=== PATIENT | male | born 1980 | race Caucasian/White ===

== ENCOUNTER 2020-11-30 11:21 | Inpatient (IN) | payer MEDICAID, SELFPAY ==
[2020-11-30 11:23] VITALS: BP 142/88; PULSE 69; RESP 14; TEMP 35.9; O2SAT 100; BMI 25.4
--- NOTE | 2020-11-30 12:11 | EDS_ITS ---
HPI History of Present Illness Chief Complaint: Substance Abuse Informant: patient Narrative Narrative: Patient is a 40-year-old previously healthy male who presents to the emergency department to detox from fentanyl. He states that he typically smokes this. He uses around a half a gram per day. He has been doing this over the past year. He has been through detox programs before in the past in [place] approximately 4 to 5 years ago. Prior to fentanyl use to use pills. He denies any other drug use. He does socially drink. He chews tobacco denies smoking cigarettes. He last use around 8 AM last night. He is starting to have some pain in his legs and feeling nauseous and a runny nose. He denies any chest pain, shortness of breath. No abdominal pain. No fevers or chills. [facility] Medical History (Updated 11/30/20 @ 15:[address] Sancho Coffman DO) Substance abuse Allergy/AdvReac Type Severity Reaction Status Date / Time No Known Allergies Allergy Verified 11/30/20 11:23 Social History Smoking Status: Current every day smoker tobacco type: cigarettes ROS ROS ED Constitutional Constitutional ED: Denies fever(s) Eyes Eyes: Denies change in vision ENT ENT ED: Denies epistaxis or rhinorrhea Cardiovascular Cardiovascular: Denies chest pain or palpitations Respiratory/Chest Respiratory/Chest: Denies cough, dyspnea or dyspnea on exertion Gastrointestinal Gastrointestinal: Reports nausea; Denies abdominal pain, diarrhea or vomiting Musculoskeletal Musculoskeletal: Reports myalgias; Denies back pain or neck pain Integumentary Denies rash Neurologic Neurologic: Denies dizziness, headache(s) or weakness EXAM Physical Exam Const Vital Signs: 11/30/20 11:23 Temperature 96.7 F L Temperature Source Temporal Pulse Rate 69 Respiratory Rate 14 Blood Pressure 142/88 H Blood Pressure Mean 106 Pulse Ox 100 Oxygen Delivery Method Room Air Positive well nourished and well developed General Appearance ED: well developed and NAD HEENT Reports normocephalic and head/scalp atraumatic Eyes PERRL and EOMs intact bilaterally Neck supple Resp normal respiratory effort and clear to auscultation bilaterally Auscultation: Negative for rales, rhonchi or wheezes Cardio regular rate, regular rhythm and no murmurs GI normal to inspection, nondistended, normoactive bowel sounds and non-tender Palpation: soft; Negative for guarding or rebound tenderness present Extremity normal to inspection General Extremety ED: Negative for edema or tenderness General Extremity: Negative for edema Neuro oriented x3 Sensorium / Orientation: alert Motor Exam: strength 5/5 throughout Psych mental status grossly normal Skin no rashes or lesions noted MDM MDM MDM Narrative Medical decision making narrative: Patient presents to the ED to request to detox from fentanyl. On arrival to the ED vital signs within normal limits. Patient has a benign physical exam. Medical screening labs being performed. We will plan on admission to the hospital for detoxification. Patient's lab work did not reveal a significant acute abnormality. Tox urine is negative as well as his alcohol level. He otherwise has remained stable throughout ED stay. Lab Data Labs: Laboratory Results - last 24 hr 11/30/20 11/30/20 11/30/20 12:14 12:14 12:14 WBC 10.7 RBC 5.18 Hgb 14.4 Hct 44.4 MCV 85.7 MCH 27.8 MCHC 32.4 RDW Std Deviation 42.9 RDW Coeff of Ivette 13.7 Plt Count 244 MPV 10.0 Immature Gran % (Auto) 0.200 Neut % (Auto) 73.6 H Lymph % (Auto) 17.9 L [place] % (Auto) 6.1 Eos % (Auto) 1.9 Baso % (Auto) 0.3 Absolute Neuts (auto) 7.9 H Absolute Lymphs (auto) 1.92 Nucleated RBC % 0 Sodium 140 Potassium 3.9 Chloride 107 Carbon Dioxide 31.0 Anion Gap 2 L BUN 15 Creatinine 0.79 Estim Creat Clear Calc 113.29 Est GFR (MDRD) Af Amer 140 Est GFR (MDRD) Non-Af 116 BUN/Creatinine Ratio 19.0 Glucose 61 L Calcium 9.4 Total Bilirubin 0.30 AST 18 ALT 25 Alkaline Phosphatase 67 Total Protein 8.1 Albumin 4.0 Globulin 4.1 Albumin/Globulin Ratio 1.0 Urine Opiates Screen Urine Methadone Screen Ur Barbiturates Screen Ur Phencyclidine Scrn Ur Amphetamines Screen U Methamphetamin-MDMA U Benzodiazepines Scrn Urine Cocaine Screen U Cannabinoids Screen Ur Drug Screen Comment Ethyl Alcohol 6.0 11/30/20 12:14 WBC RBC Hgb Hct MCV MCH MCHC RDW Std Deviation RDW Coeff of Ivette Plt Count MPV Immature Gran % (Auto) Neut % (Auto) Lymph % (Auto) [place] % (Auto) Eos % (Auto) Baso % (Auto) Absolute Neuts (auto) Absolute Lymphs (auto) Nucleated RBC % Sodium Potassium Chloride Carbon Dioxide Anion Gap BUN Creatinine Estim Creat Clear Calc Est GFR (MDRD) Af Amer Est GFR (MDRD) Non-Af BUN/Creatinine Ratio Glucose Calcium Total Bilirubin AST ALT Alkaline Phosphatase Total Protein Albumin Globulin Albumin/Globulin Ratio Urine Opiates Screen NEGATIVE Urine Methadone Screen NEGATIVE Ur Barbiturates Screen NEGATIVE Ur Phencyclidine Scrn NEGATIVE Ur Amphetamines Screen NEGATIVE U Methamphetamin-MDMA NEGATIVE U Benzodiazepines Scrn NEGATIVE Urine Cocaine Screen NEGATIVE U Cannabinoids Screen NEGATIVE Ur Drug Screen Comment Ethyl Alcohol Discharge Plan Dx/Rx/DC Orders Clinical Impression: Fentanyl dependence Disposition Disposition: Acute Care Hospital [facility]
[2020-11-30 12:46] LABS: Absolute Lymphocyte Count 1.92 X10^3/uL (0.83-4.51); Absolute Neutrophil Count 7.9 X10^3/uL (2.0-7.7); Basophil# 0.03 X10^3/uL; Basophil% 0.3 % (0-1); Eosinophils% 1.9 % (0-5); Hematocrit 44.4 % (40-54); Hemoglobin 14.4 g/dL (13.0-16.5); Lymphocyte # 1.92 X10^3/ul (0.83-4.51); Lymphocyte % 17.9 % (19-41); Mean Corp Hgb Conc 32.4 g/dL (32-36); Mean Corpuscular Hgb 27.8 pg (27.0-32.0); Mean Corpuscular Volume 85.7 fL (80-94); Monocyte# 0.65 X10^3/uL; Monocyte% 6.1 % (0-10); NRBC Flagged by Analyzer 0 % (0-5); Neutrophil # 7.89 X10^3/uL (2.7-7.7); Neutrophil % 73.6 % (47-70); Platelet Count 244 K/mm3 (150-450); RBC Distribution Width CV 13.7 % (11.6-14.6); RBC Distribution Width SD 42.9 fl (35.1-43.9); Red Blood Count 5.18 M/mm3 (4.6-6.2); White Blood Count 10.7 K/mm3 (4.4-11.0)
[2020-11-30 13:00] LABS: AST(SGOT) 18 U/L (15-37); Alanine Aminotransfer ALT/SGPT 25 U/L (16-61); Alkaline Phosphatase 67 U/L (45-117); Anion Gap 2 (5-15); BUN 15 mg/dL (7-18); Calcium,Total 9.4 mg/dL (8.5-10.1); Chloride 107 mmol/L (98-107); Creatinine, Serum 0.79 mg/dL (0.70-1.30); EST Glomerular Filtration Rate 116 mL/min (>60); Est Glom Filt Rate - Afr Amer 140 mL/min (>60); Estimated Creatinine Clearance 113.29 ml/min; Globulin 4.1 g/dL (2.2-4.2); Glucose 61 mg/dL (74-106); Potassium 3.9 mmol/L (3.5-5.1); Protein, Total 8.1 g/dL (6.4-8.2); Sodium Level 140 mmol/L (136-145)
[2020-11-30 13:15] LABS: Amphetamine Urine VISTA NEGATIVE (<1000 ng/mL); Barbiturate Urine VISTA NEGATIVE (< 200 ng/mL); Benzodiazepine Urine VISTA NEGATIVE (< 200 ng/mL); Cocaine Urine VISTA NEGATIVE (< 300 ng/mL); Ecstacy Urine VISTA NEGATIVE (< 500 ng/mL); Methadone Urine VISTA NEGATIVE (< 300 ng/mL); PCP Urine VISTA NEGATIVE (< 25 ng/mL); THC Urine VISTA NEGATIVE (< 50 ng/mL); Vista UDS pH Range 6
--- NOTE | 2020-11-30 13:24 | HP.PCM.HOS_ITS ---
HPI - General HPI Narrative GLENN OLIVAS, is a 40 M with a PMH as outlined who presents for acute opiate detox. He has a history of fentanyl use, and uses about half a gram daily. His last use was at around 8pm on the night before admission. He has been through detox programs in [place] in the past. He also admitted to using alcohol o ccassionally and chewed tobacco, but didnt smoke it. he denied any cramps, increased sweating, chest pain, palpitaitons, fever, chills, shortness of breath, diarrhea or vomiting. Vitals in the ED were BP of 142/88, OK of 69, RR of 14 and he was saturating at 100% on room air. CBC was unremarkable, and BMp was also unremarkable. Urinalysis was negative, and serum alcohol level was 6. he is being admitted to be managed for acute opioid withrawal. [facility] Medical History (Updated 11/30/20 @ 13:[address] Jaida Herrera MD) Substance abuse Allergy/AdvReac Type Severity Reaction Status Date / Time No Known Allergies Allergy Verified 11/30/20 11:23 Social History Smoking Status: Current every day smoker tobacco type: cigarettes ROS Constitutional Constitutional: Reports chills; Denies anorexia, fever(s), malaise or weakness Eyes Eyes: Denies change in vision ENT HEENT: Reports nasal discharge; Denies dysphagia, headache(s) or nasal c ongestion Cardiovascular Cardiovascular: Reports dyspnea on exertion and lightheadedness; Denies chest pain, edema, orthopnea or palpitations Respiratory/Chest Respiratory/Chest: Denies cough, dyspnea, excessive phlegm production, hemoptysis, productive cough, shortness of breath at rest or shortness of breath with exertion Gastrointestinal Gastrointestinal: Denies abdominal pain, constipation, diarrhea, nausea or vomiting Genitourinary Genitourinary: Denies burning urination or dysuria Musculoskeletal Musculoskeletal: Denies arthralgias Neurologic Neurologic: Denies confusion, dizziness, headache(s), numbness, seizures or syncope Psychiatric Psychiatric: Denies anxiety or depression Hematologic/Lymphatic Hematologic/Lymphatic: Denies anemia Vital Signs Vital Signs Vital Signs: 11/30/20 11:23 Temperature 96.7 F L Temperature Source Temporal Pulse Rate 69 Respiratory Rate 14 Blood Pressure 142/88 H Blood Pressure Mean 106 Pulse Ox 100 Oxygen Delivery Method Room Air Weight Weight: 157 lb 6.561 oz Body Mass Index (BMI) 25.4 Physical Exam Const alert, oriented x3, no apparent distress and average body habitus General Appearance: cooperative HEENT normocephalic, head/scalp atraumatic, hearing grossly normal bilaterally and moist oral mucous membranes Eyes PERRL, EOMs intact bilaterally and conjunctivae normal Resp normal respiratory effort, no retractions, no use of accessory muscles and clear to auscultation bilaterally Cardio regular rate, regular rhythm, S1 normal heart sound, S2 normal heart sound and no murmurs GI normal to inspection, nondistended, normoactive bowel sounds, soft to palpation, non-tender and non-distended Extremity normal to inspection, full ROM and no clubbing, cyanosis or edema Peripheral Pulses: Yes pulses 2+ throughout Skin no rashes or lesions noted Neuro oriented x3, CN's II-XII intact bilaterally, moves all extremities and no focal motor deficits Sensorium / Orientation: awake and alert Psych affect normal Results Lab / Micro Data Result Diagrams: 11/30/20 12:14 11/30/20 12:14 Labs: Laboratory Results - last 24 hr 11/30/20 12:14: WBC 10.7, RBC 5.18, Hgb 14.4, Hct 44.4, MCV 85.7, MCH 27.8, MCHC 32.4, RDW Std Deviation 42.9, RDW Coeff of Ivette 13.7, Plt Count 244, MPV 10.0, Immature Gran % (Auto) 0.200, Neut % (Auto) 73.6 H, Lymph % (Auto) 17.9 L, [place] % (Auto) 6.1, Eos % (Auto) 1.9, Baso % (Auto) 0.3, Absolute Neuts (auto) 7.9 H, Absolute Lymphs (auto) 1.92, Nucleated RBC % 0 11/30/20 12:14: Sodium 140, Potassium 3.9, Chloride 107, Carbon Dioxide 31.0, Anion Gap 2 L, BUN 15, Creatinine 0.79, Estim Creat Clear Calc 113.29, Est GFR (MDRD) Af Amer 140, Est GFR (MDRD) Non-Af 116, BUN/Creatinine Ratio 19.0, Glucose 61 L, Calcium 9.4, Total Bilirubin 0.30, AST 18, ALT 25, Alkaline Phosphatase 67, Total Protein 8.1, Albumin 4.0, Globulin 4.1, Albumin/Globulin Ratio 1.0 11/30/20 12:14: Ethyl Alcohol 6.0 11/30/20 12:14: Urine Opiates Screen NEGATIVE, Urine Methadone Screen NEGATIVE, Ur Barbiturates Screen NEGATIVE, Ur Phencyclidine Scrn NEGATIVE, Ur Amphetamines Screen NEGATIVE, U Methamphetamin-MDMA NEGATIVE, U Benzodiazepines Scrn NEGATIVE, Urine Cocaine Screen NEGATIVE, U Cannabinoids Screen NEGATIVE, Ur Drug Screen Comment Assessment & Plan Assessment/Plan (1) Opioid withdrawal: PLAN: #Acute opioid withdrawal * admit to med surg with telemetry * start on opioid withdrawal protocol with buprenorphine * monitor CINA score * adjunctive meds for symptomatic relief * #Nicotine dependence: says he chews, but doesnt smoke nicotine. Counseled to quit chewing. Nicotine patch 21mg daily DVT prophylaxis: low risk, encourage to ambulate Charges/Coding Visit Charges Inpatient E&M: 90949 Init Hosp L3
[2020-11-30 14:17] VITALS: BP 142/78; PULSE 87; RESP 16; O2SAT 99
[2020-11-30 16:09] VITALS: BP 130/87; PULSE 78; RESP 16; TEMP 36.4; O2SAT 99
--- NOTE | 2020-11-30 16:14 | ED.RN ---
contract signed and social work in with pt
--- NOTE | 2020-11-30 16:16 | CM.ED ---
FLOYD Note: FLOYD referral Source: Case Find Referral Reason: Maame Mckeon met with patient. He is being admitted to [facility]. He reports he abuses fentanyl. He reports 1/2 gram a day with last use at 8pm last night. No current AOD treatment but has AOD treatment in the past in [place], where he is from. Patient was educated on [facility] program and expectations and patient voiced understanding and no concerns. FLOYD called Lesia at [facility]. She was advised of patient admission to the [facility] program. She will follow up on Wednesday. Plan: [facility] Admission Emmie KYLE
[2020-11-30 16:26] VITALS: BP 136/62; PULSE 60; RESP 16; TEMP 37; O2SAT 100; BMI 25.4
[2020-11-30] MEDS: Dicyclomine 10 MG Capsule 20 MG PO (18:18)
[2020-11-30] MEDS: hydrOXYzine PAM 25 MG Capsule 50 MG PO (18:18)
[2020-11-30] MEDS: Methocarbamol 750 MG Tablet 1500 MG PO (18:18)
[2020-11-30] MEDS: Buprenorphine HCl 2 MG TAB.SUBL SL (18:18)
[2020-11-30 20:47] VITALS: BP 139/60; PULSE 79; RESP 18; TEMP 36.8; O2SAT 98
[2020-11-30] MEDS: traZODone 100 MG Tablet PO (20:51)
[2020-11-30] MEDS: Gabapentin 300 MG Capsule PO (20:51)
[2020-11-30] MEDS: cloNIDine HCl 0.1 MG Tablet PO (20:51)
[2020-11-30] MEDS: AMOXICILLIN 500 MG CAPSULE PO (20:51)
[2020-12-01] MEDS: hydrOXYzine PAM 25 MG Capsule 50 MG PO ×3 (02:54→15:51)
[2020-12-01] MEDS: Buprenorphine HCl 2 MG TAB.SUBL SL ×3 (02:54→17:47)
[2020-12-01] MEDS: Methocarbamol 750 MG Tablet 1500 MG PO ×3 (02:54→21:06)
[2020-12-01 03:04] VITALS: BP 108/56; PULSE 63; RESP 18; TEMP 36.5; O2SAT 98
[2020-12-01 08:24] VITALS: BP 117/71; PULSE 78; RESP 18; TEMP 36.5; O2SAT 99
[2020-12-01] MEDS: Dicyclomine 10 MG Capsule 20 MG PO ×2 (08:30→21:06)
[2020-12-01] MEDS: cloNIDine HCl 0.1 MG Tablet PO ×2 (08:30→21:06)
--- NOTE | 2020-12-01 10:16 | PN.HOSP_ITS ---
Subjective Subjective Patient seen and examined. He has no complaints today and feels well. Review of systems is otherwise negative. He has remained hemodynamically stable. He is tolerating the detox procedure well. Objective Data Objective Data Vital Signs: Vital Signs Temp Pulse Resp BP Pulse Ox 97.7 F L 78 18 117/71 99 12/01/20 08:24 12/01/20 08:24 12/01/20 08:24 12/01/20 08:24 12/01/20 08:24 Oxygen Delivery Method Room Air Weight: 157 lb 6.561 oz Body Mass Index (BMI) 25.4 Intake & Output: Intake and Output for Last 24 Hours 11/29/20 11/30/20 12/01/20 23:59 23:59 23:59 Intake Total 600 / 600 500 / 500 Balance 600 / 600 500 / 500 Lab / Micro Data Result Diagrams: 11/30/20 12:14 11/30/20 12:14 Labs: Laboratory Results - last 24 hr 11/30/20 12:14: WBC 10.7, RBC 5.18, Hgb 14.4, Hct 44.4, MCV 85.7, MCH 27.8, MCHC 32.4, RDW Std Deviation 42.9, RDW Coeff of Ivette 13.7, Plt Count 244, MPV 10.0, Immature Gran % (Auto) 0.200, Neut % (Auto) 73.6 H, Lymph % (Auto) 17.9 L, [place] % (Auto) 6.1, Eos % (Auto) 1.9, Baso % (Auto) 0.3, Absolute Neuts (auto) 7.9 H, Absolute Lymphs (auto) 1.92, Nucleated RBC % 0 11/30/20 12:14: Sodium 140, Potassium 3.9, Chloride 107, Carbon Dioxide 31.0, Anion Gap 2 L, BUN 15, Creatinine 0.79, Estim Creat Clear Calc 113.29, Est GFR (MDRD) Af Amer 140, Est GFR (MDRD) Non-Af 116, BUN/Creatinine Ratio 19.0, Glucose 61 L, Calcium 9.4, Total Bilirubin 0.30, AST 18, ALT 25, Alkaline Phosphatase 67, Total Protein 8.1, Albumin 4.0, Globulin 4.1, Albumin/Globulin Ratio 1.0 11/30/20 12:14: Ethyl Alcohol 6.0 11/30/20 12:14: Urine Opiates Screen NEGATIVE, Urine Methadone Screen NEGATIVE, Ur Barbiturates Screen NEGATIVE, Ur Phencyclidine Scrn NEGATIVE, Ur Amphetamines Screen NEGATIVE, U Methamphetamin-MDMA NEGATIVE, U Benzodiazepines Scrn NEGATIVE, Urine Cocaine Screen NEGATIVE, U Cannabinoids Screen NEGATIVE, Ur Drug Screen Comment Physical Exam Const alert, oriented x3, no apparent distress and average body habitus General Appearance: cooperative Exam Limitations: no limitations HEENT normocephalic, head/scalp atraumatic, hearing grossly normal bilaterally and moist oral mucous membranes Head and Scalp: normocephalic Eyes PERRL, EOMs intact bilaterally and conjunctivae normal Resp normal respiratory effort, no retractions, no use of accessory muscles and clear to auscultation bilaterally Cardio regular rate, regular rhythm, S1 normal heart sound, S2 normal heart sound and no murmurs GI normal to inspection, nondistended, normoactive bowel sounds, soft to palpation, non-tender and non-distended Extremity normal to inspection, full ROM and no clubbing, cyanosis or edema Peripheral Pulses: Yes pulses 2+ throughout Skin no rashes or lesions noted Neuro oriented x3, CN's II-XII intact bilaterally, moves all extremities and no focal motor deficits Sensorium / Orientation: awake and alert Psych affect normal Assessment & Plan Assessment/Plan (1) Opioid withdrawal: PLAN: #Acute opioid withdrawal * on opioid withdrawal protocol with buprenorphine * monitor CINA score * adjunctive meds for symptomatic relief * #Nicotine dependence: Counseled to quit chewing. Nicotine patch 21mg daily DVT prophylaxis: low risk, encourage to ambulate Charges/Coding Visit Charges Inpatient E&M: 82597 Subs Hosp L2
[2020-12-01] MEDS: AMOXICILLIN 500 MG CAPSULE PO ×2 (10:17→21:06)
[2020-12-01 12:42] VITALS: BP 98/56; PULSE 74; RESP 16; TEMP 36.6; O2SAT 94
[2020-12-01] MEDS: Gabapentin 300 MG Capsule PO ×2 (12:46→21:06)
[2020-12-01 15:52] VITALS: BP 107/63; PULSE 82; RESP 18; TEMP 36.3; O2SAT 95
[2020-12-01 20:53] VITALS: BP 131/68; PULSE 83; RESP 18; TEMP 36.6; O2SAT 99
[2020-12-01] MEDS: traZODone 100 MG Tablet PO (21:06)
[2020-12-02 02:28] VITALS: BP 123/53; PULSE 86; RESP 18; TEMP 36.6; O2SAT 99
[2020-12-02] MEDS: Buprenorphine HCl 2 MG TAB.SUBL SL ×3 (02:33→17:58)
--- NOTE | 2020-12-02 07:16 | PN.HOSP_ITS ---
Subjective Subjective Patient seen and examined. He has no complaints today and review of systems is otherwise unremarkable. He has remained hemodynamically stable. Objective Data Objective Data Vital Signs: Vital Signs Temp Pulse Resp BP Pulse Ox 97.8 F 86 18 123/53 H 99 12/02/20 02:28 12/02/20 02:28 12/02/20 02:28 12/02/20 02:28 12/02/20 02:28 Oxygen Delivery Method Room Air Weight: 157 lb 6.561 oz Body Mass Index (BMI) 25.4 Intake & Output: Intake and Output for Last 24 Hours 11/30/20 12/01/20 12/02/20 23:59 23:59 23:59 Intake Total 600 / 600 500 / 500 Balance 600 / 600 500 / 500 Lab / Micro Data Result Diagrams: 11/30/20 12:14 11/30/20 12:14 Physical Exam Const alert, oriented x3, no apparent distress and average body habitus General Appearance: cooperative Exam Limitations: no limitations HEENT normocephalic, head/scalp atraumatic, hearing grossly normal bilaterally and moist oral mucous membranes Head and Scalp: normocephalic Eyes PERRL, EOMs intact bilaterally and conjunctivae normal Resp normal respiratory effort, no retractions, no use of accessory muscles and clear to auscultation bilaterally Cardio regular rate, regular rhythm, S1 normal heart sound, S2 normal heart sound and no murmurs GI normal to inspection, nondistended, normoactive bowel sounds, soft to palpation, non-tender and non-distended Extremity normal to inspection, full ROM and no clubbing, cyanosis or edema Peripheral Pulses: Yes pulses 2+ throughout Skin no rashes or lesions noted Neuro oriented x3, CN's II-XII intact bilaterally, moves all extremities and no focal motor deficits Sensorium / Orientation: awake and alert Psych affect normal Assessment & Plan Assessment/Plan (1) Opioid withdrawal: PLAN: #Acute opioid withdrawal * on opioid withdrawal protocol with buprenorphine * monitor CINA score * adjunctive meds for symptomatic relief * #Nicotine dependence: Counseled to quit chewing. Nicotine patch 21mg daily DVT prophylaxis: low risk, encourage to ambulate Charges/Coding Visit Charges Inpatient E&M: 46862 Subs Hosp L2
[2020-12-02 08:30] VITALS: BP 112/68; PULSE 86; RESP 18; TEMP 36.6; O2SAT 98
[2020-12-02] MEDS: Gabapentin 300 MG Capsule PO ×2 (09:15→22:11)
[2020-12-02] MEDS: Methocarbamol 750 MG Tablet 1500 MG PO (09:15)
[2020-12-02] MEDS: hydrOXYzine PAM 25 MG Capsule 50 MG PO (09:15)
[2020-12-02] MEDS: AMOXICILLIN 500 MG CAPSULE PO ×2 (10:34→22:11)
[2020-12-02 14:38] VITALS: BP 118/73; PULSE 76; RESP 18; TEMP 36.5; O2SAT 98
--- NOTE | 2020-12-02 20:43 | NURSING ---
Pandemic documentation initiated 12/02/20 @ 2044.
[2020-12-02 21:59] VITALS: BP 154/73; PULSE 87; RESP 18; TEMP 36.9; O2SAT 99
[2020-12-02] MEDS: cloNIDine HCl 0.1 MG Tablet PO (22:11)
[2020-12-02] MEDS: traZODone 100 MG Tablet PO (22:11)
[2020-12-02] MEDS: Acetaminophen 325 MG Tablet 650 MG PO (22:39)
[2020-12-03 04:07] VITALS: BP 139/61; PULSE 80; RESP 18; TEMP 36.4; O2SAT 99
[2020-12-03] MEDS: Buprenorphine HCl 2 MG TAB.SUBL SL (06:06)
[2020-12-03 08:38] VITALS: BP 113/51; PULSE 69; RESP 18; TEMP 37.2; O2SAT 98
--- NOTE | 2020-12-03 09:25 | DS.PCM_ITS ---
Providers Date of Admission: 11/30/20 Primary Care Physician: No Primary Care Phys Reason For Visit: ACUTE OPIOID WITHDRAWAL Diagnosis Discharge Diagnosis (1) Opioid withdrawal: Status: Acute Code(s): F11.23 - Opioid dependence with withdrawal Hospital Course Operations None Procedures None Summary of Care Provided Minutes Spent on Discharge: 45 Hospital Course: and his last use was around Patient had a history of fentanyl use and used about half a gram daily is a 40-year-old male with a past medical history as outlined with admitted for acute opiate withdrawal.Patient 8 PM on the night before admission. Patient had been through detox a few years ago in [place] but has subsequently relapsed. Review of systems otherwise negative. Was started on opiate withdrawal protocol with Serum alcohol level was 6 and labs were otherwise unremarkable. He was admitted and managed for acute opiate withdrawal. buprenorphine. Patient tolerated 3-day detox process well. He was discharged home on 12/03/2020 is to follow-up with [facility] rehab facility on outpatient basis. Patient seen and examined prior to discharge. He had no complaints and felt well. Review of systems otherwise negative. Labs and vitals reviewed. Home medication reviewed and reconciled. Physical Exam Const alert, oriented x3, no apparent distress and average body habitus General Appearance: cooperative Exam Limitations: no limitations HEENT normocephalic, head/scalp atraumatic, hearing grossly normal bilaterally and moist oral mucous membranes Eyes PERRL, EOMs intact bilaterally and conjunctivae normal Resp normal respiratory effort, no retractions, no use of accessory muscles and clear to auscultation bilaterally Cardio regular rate, regular rhythm, S1 normal heart sound, S2 normal heart sound and no murmurs GI normal to inspection, nondistended, normoactive bowel sounds, soft to palpation, non-tender and non-distended Extremity normal to inspection, full ROM and no clubbing, cyanosis or edema Skin no rashes or lesions noted Neuro oriented x3, CN's II-XII intact bilaterally, moves all extremities and no focal motor deficits Sensorium / Orientation: awake and alert Psych affect normal Weight / BMI Weight Weight: 157 lb 6.561 oz Body Mass Index (BMI) 25.4 ABG / Lab / Microbiology Data Result Diagrams: 11/30/20 12:14 11/30/20 12:14 D/C Instructions Discharge Diet: No restrictions Discharge Activity: Return to Normal Activity Weight Bearing Status: Weight bearing as tolerated Call your doctor if you observe: Fever of 101 or Higher, Shortness of breath, Dizziness, Chest pain and Increased palpitations (irregular heartbeat) Meaningful Use Info Meaningful Use Diagnoses (Choose all that apply): None applicable Discharge Plan Admission Admit Date/Time: 11/30/20 13:36 Primary Reason for Your Visit: acute opioid withdrawal Attending Provider: Jaida Herrera Primary Care Provider: Care Physician,No Primary Instructions Patient Instructions: Heroin Addiction, ED Opioid Withdrawal Discharge Orders/Prescriptions Prescriptions: Discontinued amoxicillin 500 mg capsule 500 mg PO BID RF: 0 Referrals / Follow Up: Care Physician,No Primary [Primary Care Provider] - Disposition Disposition (needs filled in before D/C Order can be placed): Home, Self Care Charges/Coding Visit Charges Inpatient E&M: 02784 Disch Hosp
[2020-12-03] MEDS: AMOXICILLIN 500 MG CAPSULE PO (10:18)
[2020-12-03 11:06] VITALS: BP 114/78; PULSE 69; RESP 18; TEMP 36.8; O2SAT 98
== END 2020-12-03 11:04 | disposition home or self-care (01) | DRG 773 ==
LOC: ED 12:42 → MS3 15:24
PROVIDERS: Admitting Provider Student in an Organized Health Care Education/Training Program; Emergency Provider Emergency Medicine; Referring Provider Student in an Organized Health Care Education/Training Program; Visit Provider Student in an Organized Health Care Education/Training Program
DX: F11.23 Opioid dependence with withdrawal (principal); F17.220 Nicotine dependence, chewing tobacco, uncomplicated
CPT/HCPCS: 80053; 80307; 82077; 85025; 99283; 99406

== ENCOUNTER 2020-12-12 21:35 | Inpatient (IN) | payer MEDICAID, SELFPAY ==
[2020-12-12 21:36] VITALS: BP 152/85; PULSE 81; RESP 16; TEMP 36.3; O2SAT 99; BMI 25.8
--- NOTE | 2020-12-12 22:39 | EDS_ITS ---
HPI History of Present Illness Chief Complaint: Substance Abuse Narrative Narrative: Patient presents with request for detox from fentanyl. He has been using on and off for about a year however he went to detox 3 weeks ago, his girlfriend however did not go through detox so he relapsed. He is now here with his girlfriend. He does not inject. [facility] Medical History (Updated 12/12/20 @ 22:[address] Kristian Castro MD) Fentanyl dependence Hypertension Substance abuse Allergy/AdvReac Type Severity Reaction Status Date / Time No Known Allergies Allergy Verified 12/12/20 21:37 Social History Smoking Status: Current every day smoker tobacco type: cigarettes and smokeless tobacco ROS ROS ED ROS Narrative Past medical history: Reviewed Medications: Reviewed Social history: Opiate abuse as in HPI Review of systems: All systems negative except as indicated General: No fever Eyes: No visual changes ENT: No upper airway congestion, normal voice Neck: No neck pain Cardiovascular: No chest pain Respiratory: No shortness of breath or cough Gastrointestinal: No abdominal pain, nausea vomiting or diarrhea Genitourinary: No dysuria Musculoskeletal: Denies myalgias no difficulty with ambulation Skin: No rash Neurological: No memory loss, confusion or any focal weakness Psych: No recent behavioral changes Hematologic: No easy bleeding or easy bruising EXAM Physical Exam Narrative Exam Narrative: Physical exam General: Well nourished, Well developed, No Acute Distress Head: Normocephalic, Atraumatic Eyes: Conjunctiva not pale ENT: Moist mucous membranes Neck: Supple, Nontender, No lymphadenopathy Cardiovascular: Regular rate, Regular rhythm Respiratory: No distress, CTA bilaterally Abdomen: Soft, Nontender, Nondistended Back: Nontender, Normal Inspection. Negative for: CVA tenderness Extremities: Nontender, No edema. No track cortes Skin: Normal color, No rash Neurological: Alert, Normal Strength, Normal Sensation Psychological: Normal affect Const Vital Signs: 12/12/20 21:36 Temperature 97.4 F L Temperature Source Temporal Pulse Rate 81 Respiratory Rate 16 Blood Pressure 152/85 H Blood Pressure Mean 107 Pulse Ox 99 Oxygen Delivery Method Room Air MDM MDM MDM Narrative Medical decision making narrative: Patient will be admitted for fentanyl detox. Discharge Plan Triage Chief Complaint: Substance Abuse ED Provider: Kristian Castro Dx/Rx/DC Orders Clinical Impression: Opiate withdrawal Primary Care Provider: Care Physician,No Primary Referrals: Care Physician,No Primary [Primary Care Provider] - Disposition Disposition: Acute Care Hospital [facility]
--- NOTE | 2020-12-12 22:45 | CM.ED ---
SW Note SW was advised by hospitalist that patient and his significant other, Daren Lao are currently entering [facility] program for detox from fentanyl. They have a month old child who is currently being cared for y grandmother. Email update send in daily report. Plan: Updated [employer] social service technician Emmie De Leon
[2020-12-12 22:46] VITALS: BP 148/82; PULSE 71; RESP 18; TEMP 36.7; O2SAT 98
--- NOTE | 2020-12-12 23:01 | ED.RN ---
PT NAVIGATOR CONTACTED BY THIS RN. SHE STATES EITHER HERSELF OR ANOTHER STAFF MEMBER WILL BE IN TO SEE PT IN THE MORNING
--- NOTE | 2020-12-12 23:05 | HP.PCM.HOS_ITS ---
HPI - General General Date of Admission: 12/12/20 Date of Service: 12/12/20 Chief Complaint: Acute Opiate Withdrawal HPI Narrative The patient is a 40 y/o M w/ PMHx: Tobacco use, Anxiety, Hepatitis C, Polysubstance abuse (reports having tried everything including IVDA, most recently using fentanyl over the last year, smoking it specifically who presents to the [facility] ED on 12/12/20 w/ noted acute opiate withdrawal onset starting on day of presentation following last dose at ~ noon with abdominal pain, generalized body aches and pains, rhinorrhea, piloerection, fatigue, restless leg, sweating. Patient interested in attaining clean status and was recently admitted for withdrawal treatment on 11/30-12/03, successfully completing program; however, he returned home and his girlfriend who had not been willing to present to the program at that time was still using, leading to his relapsing and using again. Both him and his girlfriend who recently had a baby currently 1 month old, presented together for current presentation for withdrawal treatment. is with grandmother. Work-up in the ED included T 97.4, heart rate 81, BP initially 152/85 however repeat 120/83, respiratory rate 16, 99% on room air, given recent presentation ED physician did not obtain admission presenting labs. [facility] Medical History (Updated 12/13/20 @ 00:[address] Lindsey Moe MD) Fentanyl dependence Substance abuse Allergy/AdvReac Type Severity Reaction Status Date / Time No Known Allergies Allergy Verified 12/12/20 21:37 Family History (Updated 12/13/20 @ 00:[address] Lindsey Moe MD) Father Hypertension Mother Cancer Reports cancer, female type. Surgical History (Updated 12/13/20 @ 00:[address] Lindsey Moe MD) History of incision and drainage Social History (Updated 12/13/20 @ 00:[address] Lindsey Moe MD) household members: significant other Smoking Status: Current every day smoker tobacco type: cigarettes Smoking packs per day: 0.5 Smoking cigarettes per day: 10.0 and smokeless tobacco alcohol intake: current alcohol intake frequency: a few times a week substance use type: other details: Patient has used several substances, prior IVDA, currently smoking Fentanyl ROS ROS Narrative Admission Review of Systems: CONSTITUTIONAL: No weight loss, fever, chills, + weakness or fatigue. HEENT: Eyes: No visual loss, blurred vision, double vision or yellow sclerae. Ears, Nose, Throat: No hearing loss, sneezing, congestion, runny nose or sore throat. SKIN: No rash or itching, lesions, wounds. CARDIOVASCULAR: No chest pain, chest pressure or chest discomfort, palpitations, edema, orthopnea, syncopal events. RESPIRATORY: No shortness of breath, cough or sputum, wheezing, hemoptysis. GASTROINTESTINAL: + anorexia, nausea without vomiting, abdominal pain, No melena, BRBPR. GENITOURINARY: No dysuria, frequency, urgency or retention. NEUROLOGICAL: No headache, dizziness, syncope, paralysis, ataxia, numbness or tingling in the extremities, focal weakness, change in bowel or bladder control, seizure. MUSCULOSKELETAL: + muscle, back pain, joint pain or stiffness. HEMATOLOGIC: No anemia, bleeding or bruising. LYMPHATICS: No enlarged nodes. No history of splenectomy. PSYCHIATRIC: + history of depression or anxiety. ENDOCRINOLOGIC: No reports of sweating, cold or heat intolerance. No polyuria or polydipsia. ALLERGIES: No history of asthma, hives, eczema or rhinitis. Vital Signs Vital Signs Vital Signs: 12/12/20 21:36 12/12/20 22:46 Temperature 97.4 F L 98.1 F Temperature Source Temporal Temporal Pulse Rate 81 71 Respiratory Rate 16 18 Blood Pressure 152/85 H 148/82 H Blood Pressure Mean 107 104 Pulse Ox 99 98 Oxygen Delivery Method Room Air Room Air Weight Weight: 160 lb Body Mass Index (BMI) 25.8 Physical Exam Narrative Physical Examination: General: Awake, alert, oriented x 3 and cooperative, seated upright in the ED bed, restless, scratching his arms frequently. Skin: Normal color, normal turgor, no icterus, no cyanosis except various abrasions, scratched regions to his extremities. HEENT: AT/NC, EOMI, PERRLA, mildly dry MM, no carotid bruits or JVD noted. Lungs: CTA bilaterally, moderate effort, mild decrease BL bases, no rales, ronchi or wheezing. Heart: Regular rate and rhythm; no gallop, rub audible. Abdomen: Soft, NTTP, ND, mildly hyperactive BS, no HSM. Extremities: No cyanosis, clubbing, or edema. Neurological: Patient awake, alert, oriented as noted, cognitive function intact; pupils equally reactive to light and accommodation, cranial nerves II- XII grossly normal, moving all 4 extremities, no focal deficits, strength preserved, mildly restless, moving frequently especially his legs. Psychiatric: Affect appears mildly anxious, restless, no acute evidence of de pressive feelings. Assessment & Plan Assessment/Plan (1) Opiate withdrawal: PLAN: The patient is a 40 y/o M w/ PMHx: Tobacco use, Anxiety, Hepatitis C, Polysubstance abuse (reports having tried everything including IVDA, most recently using fentanyl over the last year, smoking it specifically who presents to the [facility] ED on 12/12/20 w/ noted acute opiate withdrawal onset. 1. Acute Opiate Withdrawal: Will admit to [facility], routine labs had recently been obtained during prior presentation therefore ED did not repeat any labs upon initial evaluation, will initiate and continue on protocol with tapering course of Subutex, as needed tylenol, ibuprofen, bowel regimen, gabapentin, Bentyl, Vistaril, methocarbamol, clonidine, PRN nightly trazodone for insomnia, IV fluids, IV antiemetics. We will consult case management for transition to next level of rehabilitation care. Discussed case additionally with ED social work given involvement of an infant. 2. Polysubstance Abuse, IVDA Hx, History of Hepatitis C, Chronic: Patient currently not candidate for hep C treatment currently as needs to be clean, sob er x 6 months, documented attendance NA or AA meetings, counseling and ongoing negative drug screens. Per discussion with patient will obtain HIV, hepatitis panel to assess for co-infection pending. 3. Tobacco Abuse: Encouraged cessation, inpatient consultation per RT, NR if desired. 4. Anxiety: Patient reports history of anxiety, not on regimen, will encourage counseling with 180 especially given current situation with young infants and attempt for clean status with both him and his girlfriend. 5. DVT prophylaxis: Low risk, encourage ambulation Charges/Coding Visit Charges Inpatient E&M: 63808 Init Hosp L2
[2020-12-12 23:14] VITALS: BMI 26.2
--- NOTE | 2020-12-12 23:14 | PCS.PANDOC ---
PANDEMIC DOCUMENTATION INITIATED: Date: 12/12/2020 Time: 7476
[2020-12-12 23:21] VITALS: BP 128/83; PULSE 70; RESP 18; TEMP 36.7; O2SAT 97
[2020-12-12] MEDS: 0.9% Saline Lock 10 ML Syringe IV (23:38)
[2020-12-12] MEDS: Lactated Ringers 1,000 ML 125 ML IV (23:38)
[2020-12-12] MEDS: traZODone 100 MG Tablet PO (23:51)
[2020-12-12] MEDS: Buprenorphine HCl 2 MG TAB.SUBL SL (23:51)
[2020-12-12] MEDS: Dicyclomine 10 MG Capsule 20 MG PO (23:51)
[2020-12-13] VITALS: O2SAT 98
[2020-12-13 04:05] VITALS: BP 109/67; PULSE 74; RESP 18; TEMP 35.9; O2SAT 98
[2020-12-13] MEDS: Methocarbamol 750 MG Tablet 1500 MG PO ×2 (04:13→19:57)
[2020-12-13] MEDS: Ibuprofen 600 MG Tablet PO (04:13)
[2020-12-13 04:57] LABS: HIV - WCH Non-Reactive (Nonreactive)
[2020-12-13] MEDS: Buprenorphine HCl 2 MG TAB.SUBL SL ×2 (06:45→16:55)
[2020-12-13 07:32] VITALS: O2SAT 97
--- NOTE | 2020-12-13 07:50 | PCM.PN.HOSP ---
Subjective Subjective Seen and examined. Patient restless and anxious. Had seizure in the past probably benzodiazepine withdrawal as he was taking Xanax before. Objective Data Objective Data Vital Signs: Vital Signs Temp Pulse Resp BP Pulse Ox 96.7 F L 74 18 109/67 98 12/13/20 04:05 12/13/20 04:05 12/13/20 04:05 12/13/20 04:05 12/13/20 04:05 Oxygen Delivery Method Room Air Weight: 162 lb 11.218 oz Body Mass Index (BMI) 26.2 Intake & Output: Intake and Output for Last 24 Hours 12/11/20 12/12/20 12/13/20 23:59 23:59 23:59 Intake Total 200 / 200 480 / 480 Output Total 0 / 0 Balance 200 / 200 480 / 480 Lab / Micro Data Labs: Laboratory Results - last 24 hr 12/12/20 21:52: HIV 1&2 Antibody Non-Reactive Physical Exam Narrative Physical Examination: General: Alert, Oriented x3, Cooperative HEENT: Atraumatic, PERRLA, EOMI, Normocephalic Oral: No Gingival or Mucosal Lesions/ Ulcerations Neck: Supple, No JVD, Negative Carotid Bruits Lungs: Air entry diminished in bilateral lung bases. No crepitation/rhonchi Cardiovascular: Regular rate, Regular Rhythm, Normal S1, Normal S2, No murmurs Abdomen: Bowel Sounds Present, Soft, Non Tender, Non-Distended : No renal angle tenderness. No suprapubic tenderness. Extremities: No edema, Capillary Refill Less than 3 Seconds Skin: No rashes, No breakdown Musculoskeletal: No Tenderness to Palpation of Joints or Extremities Neurological: Cranial nerves II-XII grossly intact, DTR 2+/4 and Symmetrical, Neuro grossly intact Psych/Mental Status: Anxiety. Restlessness Assessment & Plan Assessment/Plan (1) Opiate withdrawal: PLAN: The patient is a 40 y/o male admitted for acute opioid withdrawal. 1. Acute Opiate Withdrawal with history of chronic opioid use and dependence: Patient is on buprenorphine along with other supportive medications. 180 is being consulted. store loss prevention manager is aware. 2. Polysubstance Abuse, IVDA Hx, History of Hepatitis C, Chronic: Need outpatient follow-up and management for chronic hepatitis C. 3. Tobacco Abuse: Encouraged cessation. On nicotine patch 4. Anxiety: Chronic disease. 5. DVT prophylaxis: Low risk, encourage ambulation Charges/Coding Visit Charges Inpatient E&M: 39898 Subs Hosp L2
[2020-12-13] MEDS: Dicyclomine 10 MG Capsule 20 MG PO ×2 (08:00→16:56)
[2020-12-13] MEDS: Gabapentin 300 MG Capsule PO ×2 (08:00→16:56)
--- NOTE | 2020-12-13 11:40 | ADDICTION ---
TW met with pt to complete the ASAM, AUDIT, DUDIT, MSE and Discharge Plan. Client presented with euthymic mood and was A+Ox4. Pt reported he has an appointment set up with [facility] in [place] on 12/17/2020. Pt also reported that due to CPS involvement, his rn case mgr also set him up for a Vivitrol/MAT appointment. Pt reported he drove to detox and transportation needs are not necessary. All documentation completed.
[2020-12-13 11:56] VITALS: BP 116/68; PULSE 57; RESP 18; TEMP 36.5; O2SAT 95
[2020-12-13] MEDS: hydrOXYzine PAM 25 MG Capsule 50 MG PO ×2 (12:05→19:57)
[2020-12-13] MEDS: cloNIDine HCl 0.1 MG Tablet PO (16:56)
[2020-12-13 16:57] VITALS: BP 117/70; PULSE 70; RESP 16; TEMP 36.1; O2SAT 97
[2020-12-13 22:20] VITALS: BP 113/70; PULSE 77; RESP 16; TEMP 36.3; O2SAT 97
[2020-12-14] MEDS: Buprenorphine HCl 2 MG TAB.SUBL SL ×3 (00:15→16:35)
[2020-12-14] MEDS: traZODone 100 MG Tablet PO (00:16)
[2020-12-14 04:15] VITALS: BP 106/70; PULSE 84; RESP 18; TEMP 36.5; O2SAT 97
[2020-12-14 07:38] VITALS: O2SAT 96
[2020-12-14 10:15] VITALS: BP 119/67; PULSE 69; RESP 16; TEMP 36.8; O2SAT 96
[2020-12-14] MEDS: Gabapentin 300 MG Capsule PO (11:33)
[2020-12-14] MEDS: Dicyclomine 10 MG Capsule 20 MG PO (11:33)
[2020-12-14] MEDS: Methocarbamol 750 MG Tablet 1500 MG PO ×2 (11:33→20:15)
--- NOTE | 2020-12-14 12:42 | PN.HOSP_ITS ---
Subjective Subjective Patient is feeling better. Withdrawal symptoms are controlled Objective Data Objective Data Vital Signs: Vital Signs Temp Pulse Resp BP Pulse Ox 98.2 F 69 16 119/67 96 12/14/20 10:15 12/14/20 10:15 12/14/20 10:15 12/14/20 10:15 12/14/20 10:15 Oxygen Delivery Method Room Air Weight: 162 lb 11.218 oz Body Mass Index (BMI) 26.2 Intake & Output: Intake and Output for Last 24 Hours 12/12/20 12/13/20 12/14/20 23:59 23:59 23:59 Intake Total 200 / 200 1480 / 1480 Output Total 0 / 0 Balance 200 / 200 1480 / 1480 Physical Exam Narrative Physical Examination: General: Alert, Oriented x3, Cooperative HEENT: Atraumatic, PERRLA, EOMI, Normocephalic Oral: No Gingival or Mucosal Lesions/ Ulcerations Neck: Supple, No JVD, Negative Carotid Bruits Lungs: Air entry diminished in bilateral lung bases. No crepitation/rhonchi Cardiovascular: Regular rate, Regular Rhythm, Normal S1, Normal S2, No murmurs Abdomen: Bowel Sounds Present, Soft, Non Tender, Non-Distended : No renal angle tenderness. No suprapubic tenderness. Extremities: No edema, Capillary Refill Less than 3 Seconds Skin: No rashes, No breakdown Musculoskeletal: No Tenderness to Palpation of Joints or Extremities Neurological: Cranial nerves II-XII grossly intact, DTR 2+/4 and Symmetrical, Neuro grossly intact Psych/Mental Status: Anxiety. Restlessness Assessment & Plan Assessment/Plan (1) Opiate withdrawal: PLAN: The patient is a 40 y/o male admitted for acute opioid withdrawal. 1. Acute Opiate Withdrawal with history of chronic opioid use and dependence: Patient is on buprenorphine along with other supportive medications. 180 is being consulted. skating rink manager is aware. 12/14: Third day of treatment. Withdrawal symptoms are controlled. 2. Polysubstance Abuse, IVDA Hx, History of Hepatitis C, Chronic: Need outpatient follow-up and management for chronic hepatitis C. HIV 1 and 2 antibody are nonreactive. Hepatitis panel pending. 3. Tobacco Abuse: Encouraged cessation. On nicotine patch 4. Anxiety: Chronic disease. 5. DVT prophylaxis: Low risk, encourage ambulation Charges/Coding Visit Charges Inpatient E&M: 15170 Subs Hosp L2
[2020-12-14 16:00] VITALS: BP 122/88; PULSE 67; RESP 16; TEMP 36.6; O2SAT 98
--- NOTE | 2020-12-14 19:09 | CASEMGMT ---
SOCIAL WORK DYLON for [facility] and [facility] signed per patient's request. Will call and update on patient's admission to [facility] on 12/16/20. MARCEL Lo, KAREN
[2020-12-14] MEDS: hydrOXYzine PAM 25 MG Capsule 50 MG PO (20:15)
[2020-12-14 21:27] VITALS: BP 140/85; PULSE 70; RESP 16; TEMP 36.3; O2SAT 98
[2020-12-15] MEDS: Buprenorphine HCl 2 MG TAB.SUBL SL ×2 (00:06→11:14)
[2020-12-15] MEDS: traZODone 100 MG Tablet PO (00:07)
[2020-12-15 02:45] VITALS: BP 122/70; PULSE 61; RESP 18; TEMP 36.2; O2SAT 98
--- NOTE | 2020-12-15 10:21 | PCM.DC ---
Discharge Instructions Diet Discharge Diet: No restrictions Activity Discharge Activity: Return to Normal Activity and May Not Drive Dressing / Incision Call your doctor if you observe: Fever of 101 or Higher, Coldness, Increased Pain, Numbness or Tingling, Change in Color, Inability to urinate, Inability to have a bowel movement, Shortness of breath, Dizziness, Swelling in the ankles, Chest pain, Prolonged hiccupping, Increased palpitations (irregular heartbeat), Calf discomfort and Uncontrolled pain Follow Up Care Test Results: Test results from this visit will be discussed in further detail at your follow-up appointment, if applicable. Discharge Plan Admission Admit Date/Time: 12/12/20 23:07 Primary Reason for Your Visit: Acute opioid withdrawal syndrome Attending Provider: Ar Paredes Primary Care Provider: Care PhysicianMelonie Primary Instructions Patient Instructions: ED Opioid Withdrawal Discharge Orders/Prescriptions Referrals / Follow Up: Care Physician,Melonie Primary [Primary Care Provider] - Disposition Disposition (needs filled in before D/C Order can be placed): Home, Self Care
--- NOTE | 2020-12-15 10:24 | PCM.DC.SUM ---
Providers Date of Admission: 12/12/20 Primary Care Physician: No Primary Care Phys Reason For Visit: OPIATE WITHDRAWAL Diagnosis Discharge Diagnosis (1) Opiate withdrawal: Status: Acute Code(s): F11.23 - Opioid dependence with withdrawal Hospital Course Summary of Care Provided Hospital Course: The patient is a 40 y/o male admitted for acute opioid withdrawal. 1. Acute Opiate Withdrawal with history of chronic opioid use and dependence: Patient is on buprenorphine along with other supportive medications. 180 is being consulted. entry level manager is aware. Withdrawal symptoms are well controlled. 2. Polysubstance Abuse, IVDA Hx, History of Hepatitis C, Chronic: Need outpatient follow-up and management for chronic hepatitis C. HIV 1 and 2 antibody are nonreactive. Hepatitis panel pending. 3. Tobacco Abuse: Encouraged cessation. On nicotine patch 4. Anxiety: Chronic disease. 5. DVT prophylaxis: Low risk, encourage ambulation Discharge medication reconciliation done. Discharge follow-up instructions completed. Discharge process discussed with the patient and all questions were answered to patient's satisfaction. Total time spent, exact 35 minutes on discharge meds reconciliation, examination, coordination of care with nurses and ancillary staff, review of imaging and blood test and discussion with the patient on follow-up instructions Physical Exam Narrative Seen and examined. Withdrawal symptoms are well controlled. Physical Examination: General: Alert, Oriented x3, Cooperative HEENT: Atraumatic, PERRLA, EOMI, Normocephalic Oral: No Gingival or Mucosal Lesions/ Ulcerations Neck: Supple, No JVD, Negative Carotid Bruits Lungs: Air entry diminished in bilateral lung bases. No crepitation/rhonchi Cardiovascular: Regular rate, Regular Rhythm, Normal S1, Normal S2, No murmurs Abdomen: Bowel Sounds Present, Soft, Non Tender, Non-Distended : No renal angle tenderness. No suprapubic tenderness. Extremities: No edema, Capillary Refill Less than 3 Seconds Skin: No rashes, No breakdown Musculoskeletal: No Tenderness to Palpation of Joints or Extremities Neurological: Cranial nerves II-XII grossly intact, DTR 2+/4 and Symmetrical, Neuro grossly intact Psych/Mental Status: Anxiety. Restlessness Weight / BMI Weight Weight: 162 lb 11.218 oz Body Mass Index (BMI) 26.2 D/C Instructions Discharge Diet: No restrictions Call your doctor if you observe: Fever of 101 or Higher, Coldness, Increased Pain, Numbness or Tingling, Change in Color, Inability to urinate, Inability to have a bowel movement, Shortness of breath, Dizziness, Swelling in the ankles, Chest pain, Prolonged hiccupping, Increased palpitations (irregular heartbeat), Calf discomfort and Uncontrolled pain Meaningful Use Info Meaningful Use Diagnoses (Choose all that apply): None applicable Discharge Plan Admission Admit Date/Time: 12/12/20 23:07 Primary Reason for Your Visit: Acute opioid withdrawal syndrome Attending Provider: Ar Paredes Primary Care Provider: Care Physician,Melonie Primary Instructions Patient Instructions: ED Opioid Withdrawal Discharge Orders/Prescriptions Referrals / Follow Up: Care Physician,No Primary [Primary Care Provider] - Disposition Disposition (needs filled in before D/C Order can be placed): Home, Self Care Charges/Coding Visit Charges Inpatient E&M: 44877 Disch Hosp
[2020-12-15] MEDS: hydrOXYzine PAM 25 MG Capsule 50 MG PO (11:17)
[2020-12-15 11:18] VITALS: BP 123/81; PULSE 74; RESP 18; TEMP 36.4; O2SAT 98
== END 2020-12-15 11:30 | disposition home or self-care (01) | DRG 773 ==
LOC: ED 22:51 → PCU 12-13 02:06
PROVIDERS: Admitting Provider Family Medicine; Emergency Provider Emergency Medicine; Visit Provider Internal Medicine
DX: F11.23 Opioid dependence with withdrawal (principal); F17.210 Nicotine dependence, cigarettes, uncomplicated; B18.2 Chronic viral hepatitis C; F41.9 Anxiety disorder, unspecified
CPT/HCPCS: 36415; 86703; 86704; 86705; 86706; 86707; 86803; 87340; 87350; 99283; 99406; J7120; A4216

== ENCOUNTER 2021-03-05 20:38 | Emergency (ER) | payer MEDICAID, SELFPAY ==
[2021-03-05 20:40] VITALS: BP 129/74; PULSE 74; RESP 16; TEMP 36.3; O2SAT 97; BMI 24.5
--- NOTE | 2021-03-05 21:07 | CM.ED ---
SOCIAL WORK Referral Source: Nursing Reason for Consult: Substance abuse-requesting detox Patient presents for detox from fentanyl. Last use was this morning. Due to limited beds, patient referred to Treatment Navigator, Dari. Call facilitated to Dari. Dari contacted [facility]. Patient referred to [facility] as [facility] has beds. Patient left department at this time. Michelle Glasgow, MAIL CENSOR, UNDERGROUND FOREMAN
== END 2021-03-05 21:08 | disposition left against medical advice (07) ==
LOC: ED 03-06 02:07
DX: F11.90 Opioid use, unspecified, uncomplicated (principal)

== ENCOUNTER 2021-03-06 07:37 | Emergency (ER) | payer MEDICAID, SELFPAY ==
[2021-03-06 07:38] VITALS: BP 152/81; PULSE 75; RESP 18; TEMP 36.2; O2SAT 100; BMI 24.4
--- NOTE | 2021-03-06 09:26 | EX.ED.DYSGE1 ---
HPI History of Present Illness Chief Complaint: Substance Abuse Narrative Narrative: Patient wishes detox from fentanyl. He has gone through detox a few months ago, he was seen here last night there were no available beds, he went to [facility] and then [facility] and still there was no detox beds. He is here again this morning. Last use of fentanyl was about 24 hours ago. He feels anxious and slightly nauseated. [facility] Medical History Fentanyl dependence Opiate withdrawal Substance abuse Medical History no medical history Allergy/AdvReac Type Severity Reaction Status Date / Time No Known Allergies Allergy Verified 03/06/21 07:40 Family History Father Hypertension Mother Cancer Reports cancer, female type. Surgical History History of incision and drainage Social History household members: significant other Smoking Status: Current every day smoker tobacco type: cigarettes and smokeless tobacco alcohol intake: current alcohol intake frequency: a few times a week substance use type: other details: Patient has used several substances, prior IVDA, currently smoking Fentanyl ROS ROS ED ROS Narrative Past medical history: Reviewed Medications: Reviewed Social history: As in HPI Review of systems: All systems negative except as indicated General: No fever Eyes: No visual changes ENT: No upper airway congestion, normal voice Neck: No neck pain Cardiovascular: No chest pain Respiratory: No shortness of breath or cough Gastrointestinal: Some nausea. No current diarrhea no abdominal pain. Genitourinary: No dysuria Musculoskeletal: Denies myalgias no difficulty with ambulation Skin: No rash Neurological: No memory loss, confusion or any focal weakness Psych: Somewhat anxious. Hematologic: No easy bleeding or easy bruising EXAM Physical Exam Narrative Exam Narrative: Physical exam General: He appears relatively comfortable as I walk into the room Head: Normocephalic, Atraumatic Eyes: Conjunctiva not pale ENT: Moist mucous membranes Neck: Supple, Nontender, No lymphadenopathy Cardiovascular: Regular rate, Regular rhythm Respiratory: No distress, CTA bilaterally Abdomen: Soft, Nontender, Nondistended Back: Nontender, Normal Inspection. Negative for: CVA tenderness Extremities: Nontender, No edema Skin: Normal color, No rash Neurological: Alert, Normal Strength, Normal Sensation Psychological: Normal affect Const Vital Signs: 03/06/21 07:38 03/06/21 10:02 Temperature 97.1 F L Temperature Source Temporal Pulse Rate 75 71 Respiratory Rate 18 16 Blood Pressure 152/81 H 129/74 H Blood Pressure Mean 104 92 Pulse Ox 100 99 Oxygen Delivery Method Room Air Room Air MDM MDM MDM Narrative Medical decision making narrative: I had social work involved in his care to get him into a detox place however I was told that the patient had eloped from the emergency department. Discharge Plan Triage Chief Complaint: Substance Abuse ED Provider: Kristian Castro Dx/Rx/DC Orders Clinical Impression: Opiate addiction, Eloped from emergency department Primary Care Provider: Care Physician,No Primary Referrals: Care Physician,No Primary [Primary Care Provider] - Disposition Disposition: Elopement
[2021-03-06] MEDS: proMETHazine 25 MG Tablet PO (10:01)
[2021-03-06] MEDS: Dicyclomine 10 MG Capsule 20 MG PO (10:01)
[2021-03-06 10:02] VITALS: BP 129/74; PULSE 71; RESP 16; O2SAT 99
--- NOTE | 2021-03-06 10:58 | ED.RN ---
Pt walked out of department
--- NOTE | 2021-03-06 11:17 | CM.ED ---
SW Note FLOYD was advised by MD Hook that patient wants detox but no beds are available at [facility].FLOYD contacted Addiction Therapist to locate a program that can provide fentanyl detox and the same level of care that [facility] can provide. FLOYD called Addiction Therapist, Ronnie Sultana and she advised patient to go to [facility] ED and then go to [place] for detox. SW spoke to patient and advised him to go to [place] and he said that he went there yesterday and there were no beds. FLOYD called Ronnie Addiction Therapist, and she recommended the program [facility] which is a 7-10 day detox program in [place] [phone]. FLOYD met with patient. SW reviewed the information about [facility] and offered patient use of the phone in the room. Patient said that he had a phone. SW advised that patient needs to call the program as they will want to speak to him. SW was advised that patient had walked out and left. FLOYD updated MD and MD is aware of patient's elopement. Plan: FLOYD provided patient with resource that can provide detox and advised patient to call. He verbalized understanding Emmei KYLE
== END 2021-03-06 11:32 | disposition left against medical advice (07) ==
PROVIDERS: Emergency Provider Emergency Medicine
DX: F11.10 Opioid abuse, uncomplicated (principal); F17.210 Nicotine dependence, cigarettes, uncomplicated
CPT/HCPCS: 99283

== ENCOUNTER 2021-04-02 19:02 | Inpatient (IN) | payer MEDICAID, SELFPAY ==
[2021-04-02 19:03] VITALS: BP 135/89; PULSE 76; RESP 17; TEMP 36.1; O2SAT 99; BMI 25.5
--- NOTE | 2021-04-02 19:26 | EX.ED.SAOD ---
HPI History of Present Illness Chief Complaint: Substance Abuse Informant: patient Onset/Context/Timing Onset: Yesterday Context: Gradual Onset Quality: Shaking Location: Lower extremities Associated Symptoms Associated Symptoms: Positive for fever* and tremor; Negative for vomiting*, diarrhea*, rash*, seizure, palpatations, change in mental status, suicidal ideation and homicidal ideation Narrative Narrative: Patient presents requesting detox from fentanyl. Patient states he smokes fentanyl. Patient states he uses approximately half a gram to 1 g/day. Patient states his last use was at 2300 last night. Patient states he went to a detox here approximately 3 months ago. Patient states he started using again approximately 2 weeks after he was discharged. Patient denies any IV drug use. Patient admits to nausea but denies any vomiting. Patient admits to some rhinorrhea and sore throat. Patient states his legs are restless. Patient denies any seizures however. Patient denies any suicidal homicidal ideations. [facility] Medical History (Updated 04/02/21 @ 20:31 by Jc Martin) Fentanyl dependence Hepatitis C Opiate withdrawal Substance abuse Home Medications NK 04/02/21 [History Last Taken Unknown] Allergy/AdvReac Type Severity Reaction Status Date / Time No Known Allergies Allergy Verified 04/02/21 19:03 Family History Father Hypertension Mother Cancer Reports cancer, female type. Surgical History History of incision and drainage Social History household members: significant other Smoking Status: Current every day smoker tobacco type: cigarettes and smokeless tobacco alcohol intake: current alcohol intake frequency: a few times a week substance use type: other details: Patient has used several substances, prior IVDA, currently smoking Fentanyl ROS ROS ED Constitutional Constitutional ED: Reports fever(s) and subjective; Denies chills Eyes Eyes: Denies blurry vision or change in vision ENT ENT ED: Reports rhinorrhea and sore throat Cardiovascular Cardiovascular: Denies chest pain or palpitations Respiratory/Chest Respiratory/Chest: Denies cough or dyspnea Gastrointestinal Gastrointestinal: Reports nausea; Denies vomiting Genitourinary Genitourinary ED: Denies dysuria or hematuria Musculoskeletal Musculoskeletal: Denies back pain or neck pain Integumentary Denies abscess or rash Neurologic Neurologic: Denies headache(s) or weakness Allergic/Immunologic Allergic/Immunologic ED: Denies mouth swelling or urticaria EXAM Physical Exam Const Vital Signs: 04/02/21 19:03 Temperature 97.0 F L Temperature Source Temporal Pulse Rate 76 Respiratory Rate 17 Blood Pressure 135/89 H Blood Pressure Mean 104 Pulse Ox 99 Oxygen Delivery Method Room Air Positive well nourished, well developed and unkempt General Appearance ED: unkempt, well developed and NAD HEENT Reports moist mucous membranes Neck supple and no JVD Resp normal respiratory effort and clear to auscultation bilaterally Cardio regular rate and regular rhythm GI soft to palpation and non-tender Extremity General Extremety ED: Negative for edema or tenderness General Extremity: Negative for edema Neuro oriented x3, CN's II-XII intact bilaterally and no sensory deficits noted Sensorium / Orientation: alert Motor Exam: strength 5/5 throughout Psych mental status grossly normal Appearance: unkempt MDM MDM MDM Narrative Medical decision making narrative: Basic labs were obtained. CBC and comprehensive metabolic profile were within normal limits. Lipase was normal. Serum alcohol level is normal. Urine tox screen was negative. Case was discussed with the hospitalist. He will admit the patient to his service. Patient understands and is agreeable with the plan. All questions were answered. Lab Data Labs: Laboratory Results - last 24 hr 04/02/21 04/02/21 04/02/21 19:50 19:50 19:50 WBC 8.8 RBC 4.47 L Hgb 13.0 Hct 37.6 L MCV 84.1 MCH 29.1 MCHC 34.6 RDW Std Deviation 39.1 RDW Coeff of Ivette 12.7 Plt Count 230 MPV 10.0 Immature Gran % (Auto) 0.200 Neut % (Auto) 55.9 Lymph % (Auto) 29.2 [place] % (Auto) 10.2 H Eos % (Auto) 4.0 Baso % (Auto) 0.5 Absolute Neuts (auto) 4.9 Absolute Lymphs (auto) 2.57 Nucleated RBC % 0 Sodium 138 Potassium 4.2 Chloride 103 Carbon Dioxide 29.0 Anion Gap 6 BUN 19 H Creatinine 0.82 Estim Creat Clear Calc 109.14 Est GFR (MDRD) Af Amer 135 Est GFR (MDRD) Non-Af 111 BUN/Creatinine Ratio 23.3 H Glucose 101 Calcium 8.9 Total Bilirubin 0.40 AST 31 ALT 29 Alkaline Phosphatase 68 Total Protein 7.1 Albumin 3.9 Globulin 3.2 Albumin/Globulin Ratio 1.2 Lipase 25 L Urine Opiates Screen Urine Methadone Screen Ur Barbiturates Screen Ur Phencyclidine Scrn Ur Amphetamines Screen U Methamphetamin-MDMA U Benzodiazepines Scrn Urine Cocaine Screen U Cannabinoids Screen Ur Drug Screen Comment Ethyl Alcohol 6.0 04/02/21 19:50 WBC RBC Hgb Hct MCV MCH MCHC RDW Std Deviation RDW Coeff of Ivette Plt Count MPV Immature Gran % (Auto) Neut % (Auto) Lymph % (Auto) [place] % (Auto) Eos % (Auto) Baso % (Auto) Absolute Neuts (auto) Absolute Lymphs (auto) Nucleated RBC % Sodium Potassium Chloride Carbon Dioxide Anion Gap BUN Creatinine Estim Creat Clear Calc Est GFR (MDRD) Af Amer Est GFR (MDRD) Non-Af BUN/Creatinine Ratio Glucose Calcium Total Bilirubin AST ALT Alkaline Phosphatase Total Protein Albumin Globulin Albumin/Globulin Ratio Lipase Urine Opiates Screen NEGATIVE Urine Methadone Screen NEGATIVE Ur Barbiturates Screen NEGATIVE Ur Phencyclidine Scrn NEGATIVE Ur Amphetamines Screen NEGATIVE U Methamphetamin-MDMA NEGATIVE U Benzodiazepines Scrn NEGATIVE Urine Cocaine Screen NEGATIVE U Cannabinoids Screen NEGATIVE Ur Drug Screen Comment Ethyl Alcohol Treatment and Re-Evaluation Vital Sign Attestation:: Vital signs were reviewed prior to admission. They are stable. Discharge Plan Dx/Rx/DC Orders Clinical Impression: Opiate withdrawal Disposition Disposition: Acute Care Hospital [facility] Discharge Date/Time: 04/02/21 20:13
--- NOTE | 2021-04-02 19:39 | NURSING ---
MED SURG DR LEYVA OPIATE WITHDRAWAL
--- NOTE | 2021-04-02 19:57 | CM.ED ---
SOCIAL WORK Reason for Consult: Substance Abuse, requesting detox from fentanyl Informed by meal cook, case was discussed with hospitalist and patient to be admitted to [facility] for detox from fentanyl. Call to Dari, Addiction Therapist to updated on patient's admission. Drai to be in tomorrow to complete assessment. Plan: Admit to [facility] Michelle Glasgow MSW, COOK APPRENTICE PASTRY
[2021-04-02 20:06] LABS: Absolute Lymphocyte Count 2.57 X10^3/uL (0.83-4.51); Absolute Neutrophil Count 4.9 X10^3/uL (2.0-7.7); Basophil# 0.04 X10^3/uL; Basophil% 0.5 % (0-1); Eosinophil# 0.35 X10^3/uL; Hematocrit 37.6 % (40-54); Lymphocyte # 2.57 X10^3/ul (0.83-4.51); Lymphocyte % 29.2 % (19-41); Mean Corp Hgb Conc 34.6 g/dL (32-36); Mean Corpuscular Hgb 29.1 pg (27.0-32.0); Mean Corpuscular Volume 84.1 fL (80-94); Monocyte% 10.2 % (0-10); NRBC Flagged by Analyzer 0 % (0-5); Neutrophil # 4.92 X10^3/uL (2.7-7.7); Neutrophil % 55.9 % (47-70); Platelet Count 230 K/mm3 (150-450); RBC Distribution Width CV 12.7 % (11.6-14.6); RBC Distribution Width SD 39.1 fl (35.1-43.9); Red Blood Count 4.47 M/mm3 (4.6-6.2); White Blood Count 8.8 K/mm3 (4.4-11.0)
[2021-04-02 20:09] VITALS: BP 112/81; PULSE 73; RESP 16; TEMP 36.1; O2SAT 99
--- NOTE | 2021-04-02 20:09 | PCM.HP.STD ---
HPI - General General Date of Admission: 04/02/21 Date of Service: 04/02/21 Chief Complaint: Need for opiate detox HPI Narrative GLENN OLIVAS, is a 40 M who presents to the emergency room at [facility] desiring services for opiate detox. Patient is a daily smoker of fentanyl, he denies any other drug use, he denies alcohol use. Patient was here twice in November 2020 for detox services but he never followed up consistently after going through the program here. Patient is having complaints of nervousness and restlessness in his legs. Patient denies any nausea. Patient denies any chronic medical problems. Work-up in the ER included labs some of which are pending at the time of this dictation, patient CBC is unremarkable, CHEM panel and talk screen are pending at the time of this dictation. Patient will be admitted to [place] [id number], orders were entered using the template for opiate detox and general addiction medicine. Patient states he wants to follow-up as an outpatient with a detox service I am not familiar with, he will be talking with social security benefits interviewer gaming cage worker in the hospital here. [facility] Medical History Fentanyl dependence Opiate withdrawal Substance abuse Allergy/AdvReac Type Severity Reaction Status Date / Time No Known Allergies Allergy Verified 04/02/21 19:03 Family History Father Hypertension Mother Cancer Reports cancer, female type. Surgical History History of incision and drainage Social History household members: significant other Smoking Status: Current every day smoker tobacco type: cigarettes and smokeless tobacco alcohol intake: current alcohol intake frequency: a few times a week substance use type: other details: Patient has used several substances, prior IVDA, currently smoking Fentanyl ROS Constitutional Constitutional: Denies anorexia, change in weight, chills, fatigue, fever(s), malaise, night sweats or weakness Eyes Eyes: Denies blurry vision, change in vision, discharge from eye(s) or eye pain Cardiovascular Cardiovascular: Denies chest pain, claudication, edema or palpitations Respiratory/Chest Respiratory/Chest: Denies cough, hemoptysis, shortness of breath at rest or shortness of breath with exertion Gastrointestinal Gastrointestinal: Denies abdominal pain, constipation, diarrhea, hematemesis, hematochezia, melena, nausea or vomiting Genitourinary Genitourinary: Denies dysuria, hematuria, urinary frequency, urinary hesitancy, urinary incontinence or urinary urgency Musculoskeletal Musculoskeletal: Denies back pain, joint pain, joint stiffness, joint swelling, myalgias or neck pain Neurologic Neurologic: Reports other Details: Patient complains of frequent movements in his legs due to detox ; Denies abnormal gait, abnormal speech, dizziness, focal weakness, headache(s), loss of vision, numbness, other visual disturbances, paresthesias, syncope or tingling Psychiatric Psychiatric: Reports other Details: Patient complains of some nervousness due to detox ; Denies anxiety, cognitive impairment, depression, irritability, mood swings or suicidal ideation Endocrine Endocrinology: Denies change in body appearance, cold intolerance, excessive sweating, heat intolerance, polydipsia or polyuria Hematologic/Lymphatic Hematologic/Lymphatic: Denies none, anemia, easy bleeding, easy bruising or lymphadenopathy Allergic/Immunologic Allergic/Immunologic: Denies rhinitis, urticaria, eczemia or asthma Vital Signs Vital Signs Vital Signs: 04/02/21 19:03 Temperature 97.0 F L Temperature Source Temporal Pulse Rate 76 Respiratory Rate 17 Blood Pressure 135/89 H Blood Pressure Mean 104 Pulse Ox 99 Oxygen Delivery Method Room Air Weight Weight: 71.8 kg Body Mass Index (BMI) 25.5 Physical Exam Const alert, oriented x3, no apparent distress and healthy appearing General Appearance: cooperative, well kempt and well developed Orientation / Consciousness: awake, oriented to person, oriented to place and oriented to time HEENT normocephalic and moist oral mucous membranes Eyes PERRL, EOMs intact bilaterally and conjunctivae normal Neck nuchal rigidity, supple, no JVD and thyroid normal General: trachea midline Resp normal respiratory effort, no retractions, no use of accessory muscles and clear to auscultation bilaterally Auscultation: Negative for rales, rhonchi or wheezes Cardio regular rate, regular rhythm, S1 normal heart sound, S2 normal heart sound, no murmurs, no rub and no gallops GI normal to inspection, nondistended, normoactive bowel sounds, soft to palpation, non-tender and non-distended Extremity normal to inspection and no clubbing, cyanosis or edema Skin no rashes or lesions noted General Skin Exam: no breakdown Neuro oriented x3, CN's II-XII intact bilaterally, no focal motor deficits and no sensory deficits noted Neuro Narrative: Patient appears somewhat restless with movement of his legs during the time of my examination. Sensorium / Orientation: awake and alert Speech: speech normal Psych thought process normal Psych Narrative: Patient appears mildly anxious during the time of my examination. Mood & Affect: anxious Results Lab / Micro Data Result Diagrams: 04/02/21 19:50 04/02/21 19:50 Labs: Laboratory Results - last 24 hr 04/02/21 19:50: WBC 8.8, RBC 4.47 L, Hgb 13.0, Hct 37.6 L, MCV 84.1, MCH 29.1, MCHC 34.6, RDW Std Deviation 39.1, RDW Coeff of Ivette 12.7, Plt Count 230, MPV 10.0, Immature Gran % (Auto) 0.200, Neut % (Auto) 55.9, Lymph % (Auto) 29.2, [place] % (Auto) 10.2 H, Eos % (Auto) 4.0, Baso % (Auto) 0.5, Absolute Neuts (auto) 4.9, Absolute Lymphs (auto) 2.57, Nucleated RBC % 0 04/02/21 19:50: Ur Drug Screen Comment Assessment & Plan Assessment/Plan (1) Opiate withdrawal: PLAN: 1. Acute opiate withdrawal from fentanyl-patient will be admitted to [facility] 3, he will be seen in consultation by addiction social security benefits interviewer for outpatient planning, orders were entered using the opiate addiction order set. Patient denies any other drug abuse or alcohol abuse. #2 chronic opiate addiction Charges/Coding Visit Charges Inpatient E&M: 12235 Init Hosp L3
[2021-04-02 20:24] VITALS: BMI 25.0
[2021-04-02 20:26] LABS: ALB/GLOB Ratio 1.2 RATIO (0.9-2.4); AST(SGOT) 31 U/L (15-37); Alanine Aminotransfer ALT/SGPT 29 U/L (16-61); Albumin, Serum 3.9 g/dL (3.2-5.0); Alkaline Phosphatase 68 U/L (45-117); Anion Gap 6 (5-15); BUN 19 mg/dL (7-18); BUN/Creat Ratio 23.3 RATIO (10-20); Calcium,Total 8.9 mg/dL (8.5-10.1); Chloride 103 mmol/L (98-107); Creatinine, Serum 0.82 mg/dL (0.70-1.30); EST Glomerular Filtration Rate 111 mL/min (>60); Est Glom Filt Rate - Afr Amer 135 mL/min (>60); Estimated Creatinine Clearance 109.14 ml/min; Globulin 3.2 g/dL (2.2-4.2); Glucose 101 mg/dL (74-106); Lipase 25 U/L (73-393); Potassium 4.2 mmol/L (3.5-5.1); Protein, Total 7.1 g/dL (6.4-8.2); Sodium Level 138 mmol/L (136-145)
[2021-04-02 20:27] VITALS: BP 127/73; PULSE 74; RESP 18; TEMP 36.8; O2SAT 98
[2021-04-02 20:36] LABS: Amphetamine Urine VISTA NEGATIVE (<1000 ng/mL); Barbiturate Urine VISTA NEGATIVE (< 200 ng/mL); Benzodiazepine Urine VISTA NEGATIVE (< 200 ng/mL); Cocaine Urine VISTA NEGATIVE (< 300 ng/mL); Ecstacy Urine VISTA NEGATIVE (< 500 ng/mL); Methadone Urine VISTA NEGATIVE (< 300 ng/mL); PCP Urine VISTA NEGATIVE (< 25 ng/mL); THC Urine VISTA NEGATIVE (< 50 ng/mL); Vista UDS pH Range 5
--- NOTE | 2021-04-02 20:42 | PCS.PANDOC ---
PANDEMIC DOCUMENTATION INITIATED: Date: 12/02/2020 Time: 190
[2021-04-03 03:27] VITALS: BP 138/79; PULSE 72; RESP 16; TEMP 36.9; O2SAT 96
[2021-04-03] MEDS: Methocarbamol 750 MG Tablet 1500 MG PO ×3 (03:34→16:44)
[2021-04-03] MEDS: Gabapentin 300 MG Capsule PO ×2 (03:34→12:13)
[2021-04-03] MEDS: Dicyclomine 10 MG Capsule 20 MG PO (03:34)
[2021-04-03] MEDS: Buprenorphine HCl 2 MG TAB.SUBL SL ×3 (03:45→19:39)
[2021-04-03 09:00] VITALS: BP 135/83; PULSE 78; RESP 16; TEMP 36.7; O2SAT 98
[2021-04-03] MEDS: cloNIDine HCl 0.1 MG Tablet PO (09:06)
--- NOTE | 2021-04-03 13:41 | ADDICTION ---
This typewriter aligner met with PT to conduct ASAM, MSE, DUDIT assessments and to plan for d/c. PT A+Ox4 and participated actively. All assessments completed, faxed to [facility] and placed in PT's chart. PT plans to f/u with individual counselor at [facility] for MAT and follow-up counseling services. PT did not indicate a need for transportation post d/c from [facility].
--- NOTE | 2021-04-03 14:14 | PCM.PN.HOSP ---
Subjective Subjective Seen and examined. Patient relapsed after he completed his hospital stay for opioid withdrawal in December 16, 2019. He states he smokes heroin. History of HIV. Objective Data Objective Data Vital Signs: Vital Signs Temp Pulse Resp BP Pulse Ox 98.1 F 78 16 135/83 H 98 04/03/21 09:00 04/03/21 09:00 04/03/21 09:00 04/03/21 09:00 04/03/21 09:00 Oxygen Delivery Method Room Air Weight: 154 lb 15.759 oz Body Mass Index (BMI) 25.0 Lab / Micro Data Result Diagrams: 04/02/21 19:50 04/02/21 19:50 Labs: Laboratory Results - last 24 hr 04/02/21 19:50: WBC 8.8, RBC 4.47 L, Hgb 13.0, Hct 37.6 L, MCV 84.1, MCH 29.1, MCHC 34.6, RDW Std Deviation 39.1, RDW Coeff of Ivette 12.7, Plt Count 230, MPV 10.0, Immature Gran % (Auto) 0.200, Neut % (Auto) 55.9, Lymph % (Auto) 29.2, [place] % (Auto) 10.2 H, Eos % (Auto) 4.0, Baso % (Auto) 0.5, Absolute Neuts (auto) 4.9, Absolute Lymphs (auto) 2.57, Nucleated RBC % 0 04/02/21 19:50: Sodium 138, Potassium 4.2, Chloride 103, Carbon Dioxide 29.0, Anion Gap 6, BUN 19 H, Creatinine 0.82, Estim Creat Clear Calc 109.14, Est GFR (MDRD) Af Amer 135, Est GFR (MDRD) Non-Af 111, BUN/Creatinine Ratio 23.3 H, Glucose 101, Calcium 8.9, Total Bilirubin 0.40, AST 31, ALT 29, Alkaline Phosphatase 68, Total Protein 7.1, Albumin 3.9, Globulin 3.2, Albumin/Globulin Ratio 1.2, Lipase 25 L 04/02/21 19:50: Ethyl Alcohol 6.0 04/02/21 19:50: Urine Opiates Screen NEGATIVE, Urine Methadone Screen NEGATIVE, Ur Barbiturates Screen NEGATIVE, Ur Phencyclidine Scrn NEGATIVE, Ur Amphetamines Screen NEGATIVE, U Methamphetamin-MDMA NEGATIVE, U Benzodiazepines Scrn NEGATIVE, Urine Cocaine Screen NEGATIVE, U Cannabinoids Screen NEGATIVE, Ur Drug Screen Comment Physical Exam Narrative General: Alert, Oriented x3, Cooperative HEENT: Atraumatic, PERRLA, EOMI, Normocephalic Oral: No Gingival or Mucosal Lesions/ Ulcerations Neck: Supple, No JVD, Negative Carotid Bruits Lungs: Air entry diminished in bilateral lung bases. No crepitation/rhonchi Cardiovascular: Regular rate, Regular Rhythm, Normal S1, Normal S2, No murmurs Abdomen: Bowel Sounds Present, Soft, Non Tender, Non-Distended : No renal angle tenderness. No suprapubic tenderness. Extremities: No edema, Capillary Refill Less than 3 Seconds Skin: No rashes, No breakdown Musculoskeletal: Restlessness of legs. Mild muscle tenderness. Neurological: Cranial nerves II-XII grossly intact, DTR 2+/4 and Symmetrical, Neuro grossly intact Psych/Mental Status: Anxious. No hallucination or suicidal ideation Assessment & Plan Assessment/Plan (1) Opiate withdrawal: PLAN: 1. Acute Opiate Withdrawal with history of chronic opioid use and dependence: Patient is on buprenorphine along with other adjunctive medication medications. 180 is being consulted. Patient failed previous opioid detoxification/externalization in November 2020. 2. Polysubstance Abuse, IV drug use history, History of Hepatitis C, Chronic: Need outpatient follow-up and management for chronic hepatitis C. During previous hospitalization, HIV 1 and 2 antibody are nonreactive. Hepatitis B serology was negative. Patient is vaccinated against hepatitis B recommended vaccination is outpatient. 3. Tobacco Abuse, cigarette smoking: Encouraged cessation. On nicotine patch. 4. Anxiety: Chronic disease. 5. DVT prophylaxis: Low risk, encourage ambulation Charges/Coding Visit Charges Inpatient E&M: 30002 Subs Hosp L2
--- NOTE | 2021-04-03 14:49 | CASEMGMT ---
Social Work Note Pt is [facility] pt. FLOYD reviewed chart. Pt was admitted to [facility] 12/12/2020-12/15/2020 and at that time had an open CPS case with [facility]. SW in to speak with pt. SW introduced self and role at [facility]. Pt is alert and orientated. Pt states that he still has an open CPS case with [facility]. Pt states that his park worker supervisor is named Daren but he is getting a different park worker supervisor this week and is not sure of the new park worker supervisor's name. Pt states that he has three children total. Two of them are ages 18 and 19 and the other one is 5 months old. Pt states that 5 month old is currently with his grandma. Pt states that his grandma currently has temporary custody of the five month old. Pt states that he is allowed to have supervised visits with the 5 month old. Pt states that he never uses any substances around the five month old. SW asked pt if his park worker supervisor is aware pt is at [facility] and pt states no. FLOYD asked pt if he wanted to sign DYLON for his park worker supervisor so this worker could let the park worker supervisor know pt is at [facility] and pt denied wanting to sign DYLON. Pt denied additional needs or concerns at this time. Lyssa Zaragoza CUSHION MAKER, HPLC CHEMIST
[2021-04-03] MEDS: Ibuprofen 600 MG Tablet PO (15:16)
[2021-04-03 15:17] VITALS: BP 131/82; PULSE 70; RESP 18; TEMP 37.2; O2SAT 99
[2021-04-03 19:37] VITALS: BP 124/84; PULSE 72; RESP 16; TEMP 36.7; O2SAT 96
[2021-04-03] MEDS: traZODone 100 MG Tablet PO (21:38)
[2021-04-04 03:32] VITALS: BP 110/66; PULSE 68; RESP 16; TEMP 36.6; O2SAT 97
[2021-04-04] MEDS: Gabapentin 300 MG Capsule PO ×3 (03:38→20:17)
[2021-04-04] MEDS: cloNIDine HCl 0.1 MG Tablet PO ×2 (03:38→11:11)
[2021-04-04] MEDS: Methocarbamol 750 MG Tablet 1500 MG PO ×3 (03:38→20:17)
[2021-04-04] MEDS: Buprenorphine HCl 2 MG TAB.SUBL SL ×3 (03:39→20:13)
[2021-04-04 09:30] VITALS: BP 121/74; PULSE 72; RESP 16; TEMP 36.5; O2SAT 97
--- NOTE | 2021-04-04 13:23 | PCM.PN.HOSP ---
Subjective Subjective She does not have tremors. No hallucination Objective Data Objective Data Vital Signs: Vital Signs Temp Pulse Resp BP Pulse Ox 97.7 F L 72 16 121/74 H 97 04/04/21 09:30 04/04/21 09:30 04/04/21 09:30 04/04/21 09:30 04/04/21 09:30 Oxygen Delivery Method Room Air Weight: 154 lb 15.759 oz Body Mass Index (BMI) 25.0 Lab / Micro Data Result Diagrams: 04/02/21 19:50 04/02/21 19:50 Physical Exam Narrative General: Alert, Oriented x3, Cooperative HEENT: Atraumatic, PERRLA, EOMI, Normocephalic Oral: No Gingival or Mucosal Lesions/ Ulcerations Neck: Supple, No JVD, Negative Carotid Bruits Lungs: Air entry equal in bilateral lung bases. No crepitation/rhonchi Cardiovascular: Regular rate, Regular Rhythm, Normal S1, Normal S2, No murmurs Abdomen: Bowel Sounds Present, Soft, Non Tender, Non-Distended : No renal angle tenderness. No suprapubic tenderness. Extremities: No edema, Capillary Refill Less than 3 Seconds Skin: No rashes, No breakdown Musculoskeletal: Restlessness of legs. Mild muscle tenderness. Neurological: Cranial nerves II-XII grossly intact, DTR 2+/4 and Symmetrical, Neuro grossly intact Psych/Mental Status: Mild anxiety. No hallucination or suicidal ideation Assessment & Plan Assessment/Plan (1) Opiate withdrawal: PLAN: 1. Acute Opiate Withdrawal with history of chronic opioid use and dependence: Patient is on buprenorphine along with other adjunctive medication medications. 180 is being consulted. Patient failed previous opioid detoxification/externalization in November 2020. : withdrawal symptoms have improved. Need 1 more hospital day. 2. Polysubstance Abuse, IV drug use history, History of Hepatitis C, Chronic: Need outpatient follow-up and management for chronic hepatitis C. During previous hospitalization, HIV 1 and 2 antibody are nonreactive. Hepatitis B serology was negative. Patient is vaccinated against hepatitis B recommended vaccination is outpatient. 04/04: Follow-up as an outpatient for chronic hepatitis C and hep B and hep A vaccination. 3. Tobacco Abuse, cigarette smoking: Encouraged cessation. On nicotine patch. 4. Anxiety: Chronic disease. 5. DVT prophylaxis: Low risk, encourage ambulation Charges/Coding Visit Charges Inpatient E&M: 50504 Subs Hosp L2
[2021-04-04 15:30] VITALS: BP 126/72; PULSE 74; RESP 16; TEMP 36.7; O2SAT 98
[2021-04-04] MEDS: Ibuprofen 600 MG Tablet PO (20:16)
[2021-04-04 20:36] VITALS: BP 129/73; PULSE 72; RESP 16; TEMP 36.9; O2SAT 98
--- NOTE | 2021-04-04 20:37 | NURSING ---
Assessed patient, did vitals and gave giovana and prn medications, ten minutes later he used his call light requesting to see his nurse, he wants to leave AMA now. Counseled against leaving but he says his dog has been home alone since Wednesday. AMA papers printed, physician notified.
--- NOTE | 2021-04-05 07:12 | PCM.DC.SUM ---
Providers Date of Admission: 04/02/21 Date of Discharge: 04/04/21 Primary Care Physician: Melonie Primary Care Phys Reason For Visit: OPIATE DETOX Diagnosis Discharge Diagnosis (1) Opiate withdrawal: Status: Acute Code(s): F11.23 - Opioid dependence with withdrawal Medications at Discharge Home Medications NK 04/02/21 Hospital Course Summary of Care Provided Hospital Course: Patient 40-year-old patient with history of chronic opioid use and dependence was admitted with acute opioid withdrawal syndrome. Patient was admitted about 3 months ago for similar indication and he went home and relapsed. This time he was treated with opioid medical stabilization protocol. Patient signed AMA at night of 04/04/2021. Physical Exam Narrative Patient signed AMA on 04/04 night. Please see progress note of the same date. Weight / BMI Weight Weight: 154 lb 15.759 oz Body Mass Index (BMI) 25.0 ABG / Lab / Microbiology Data Result Diagrams: 04/02/21 19:50 04/02/21 19:50 Meaningful Use Info Meaningful Use Diagnoses (Choose all that apply): None applicable Discharge Plan Admission Admit Date/Time: 04/02/21 19:53 Attending Provider: Ar Paredes Primary Care Provider: Care Physician,No Primary Discharge Orders/Prescriptions Prescriptions: No Action NK RF: 0 Referrals / Follow Up: Care Physician,No Primary [Primary Care Provider] - Disposition Disposition (needs filled in before D/C Order can be placed): Against Medical Advice
== END 2021-04-04 20:50 | disposition left against medical advice (07) | DRG 770 ==
LOC: ED 19:48 → MS3 20:42
PROVIDERS: Admitting Provider Internal Medicine; Emergency Provider Emergency Medicine; Visit Provider Internal Medicine
DX: F11.23 Opioid dependence with withdrawal (principal); F17.210 Nicotine dependence, cigarettes, uncomplicated; Z21 Asymptomatic human immunodeficiency virus [HIV] infection status; Z86.19 Personal history of other infectious and parasitic diseases
CPT/HCPCS: 80053; 80307; 82077; 83690; 85025; 99283; 99406

== ENCOUNTER 2021-08-23 07:08 | Inpatient (IN) | payer MEDICAID, SELFPAY ==
[2021-08-23 07:08] VITALS: BP 150/76; PULSE 64; RESP 18; TEMP 36.6; O2SAT 98; BMI 25.0
--- NOTE | 2021-08-23 07:19 | EX.ED.SAOD ---
HPI <Dr. Fior Matute MD - Last Filed: 08/23/21 07:23> History of Present Illness Chief Complaint: Substance Abuse Detail of Chief Complaint: Request for detox Informant: patient Narrative Narrative: Patient presents requesting help with detox from fentanyl. He has been through the program previously and was recently clean for 3 months after working with [employer] He states he relapsed about a month ago. He has been smoking fentanyl daily. Last use was 3 PM yesterday. Patient does admit to cocaine use as well but denies any other drugs. He reports very rare alcohol use. He is a smoker. [facility] <Dr. Fior Matute MD - Last Filed: 08/23/21 07:23> [facility] Medical History Fentanyl dependence Hepatitis C Opiate withdrawal Substance abuse Home Medications NK 04/02/21 [History Last Taken Unknown] Allergy/AdvReac Type Severity Reaction Status Date / Time No Known Allergies Allergy Verified 08/23/21 07:10 Family History Father Hypertension Mother Cancer Reports cancer, female type. Surgical History History of incision and drainage Social History household members: significant other Smoking Status: Current every day smoker tobacco type: cigarettes and smokeless tobacco alcohol intake: current alcohol intake frequency: a few times a week substance use type: other details: Patient has used several substances, prior IVDA, currently smoking Fentanyl ROS <Dr. Fior Matute MD - Last Filed: 08/23/21 07:23> ROS ED Constitutional Constitutional ED: Denies chills or fever(s) Eyes Eyes: Denies change in vision ENT ENT ED: Denies sore throat Cardiovascular Cardiovascular: Denies chest pain Respiratory/Chest Respiratory/Chest: Denies cough or dyspnea Gastrointestinal Gastrointestinal: Denies abdominal pain, nausea or vomiting Musculoskeletal Musculoskeletal: Denies back pain Integumentary Denies rash Neurologic Neurologic: Denies headache(s) or weakness Allergic/Immunologic Allergic/Immunologic ED: Denies urticaria EXAM <Dr. Fior Matute MD - Last Filed: 08/23/21 07:23> Physical Exam Const Vital Signs: 08/23/21 07:08 Temperature 97.9 F Temperature Source Temporal Pulse Rate 64 Respiratory Rate 18 Blood Pressure 150/76 H Blood Pressure Mean 100 Pulse Ox 98 Oxygen Delivery Method Room Air Positive well nourished and well developed General Appearance ED: well developed HEENT Reports moist mucous membranes Eyes PERRL and EOMs intact bilaterally Neck supple Chest Wall inspection of chest normal and palpation of chest normal Resp normal respiratory effort and clear to auscultation bilaterally Cardio regular rate and regular rhythm GI soft to palpation, non-tender and non-distended Extremity General Extremety ED: Negative for tenderness Neuro oriented x3 and no sensory deficits noted Sensorium / Orientation: alert Motor Exam: strength 5/5 throughout Skin Skin Narrative: Few scattered scabbed lesions noted to the back and forearms. No sign of secondary infection. <Dr. Luis Armando Forrest DO - Last Filed: 08/23/21 08:16> Physical Exam Const Vital Signs: 08/23/21 07:08 Temperature 97.9 F Temperature Source Temporal Pulse Rate 64 Respiratory Rate 18 Blood Pressure 150/76 H Blood Pressure Mean 100 Pulse Ox 98 Oxygen Delivery Method Room Air MDM <Dr. Fior Matute MD - Last Filed: 08/23/21 07:23> MDM MDM Narrative Medical decision making narrative: Patient reviewing the agreement for the detox program. Lab work for addiction medicine will be sent. Lab Data Labs: Laboratory Results - last 24 hr 08/23/21 08/23/21 08/23/21 07:37 07:37 07:37 WBC 8.5 RBC 4.67 Hgb 13.6 Hct 40.5 MCV 86.7 MCH 29.1 MCHC 33.6 RDW Std Deviation 41.0 RDW Coeff of Ivette 13.0 Plt Count 260 MPV 10.1 Immature Gran % (Auto) 0.200 Neut % (Auto) 54.7 Lymph % (Auto) 31.9 Edwards % (Auto) 7.6 Eos % (Auto) 5.1 H Baso % (Auto) 0.5 Absolute Neuts (auto) 4.7 Absolute Lymphs (auto) 2.71 Nucleated RBC % 0 Sodium 141 Potassium 4.0 Chloride 105 Carbon Dioxide 30.0 Anion Gap 6 BUN 12 Creatinine 0.86 Estim Creat Clear Calc 103.04 Est GFR (MDRD) Af Amer 126 Est GFR (MDRD) Non-Af 104 BUN/Creatinine Ratio 13.9 Glucose 98 Calcium 8.9 Total Bilirubin 0.30 AST 19 ALT 17 Alkaline Phosphatase 63 Total Protein 6.8 Albumin 3.5 Globulin 3.3 Albumin/Globulin Ratio 1.1 Ur Drug Screen Comment Ethyl Alcohol < 3.0 08/23/21 08:00 WBC RBC Hgb Hct MCV MCH MCHC RDW Std Deviation RDW Coeff of Ivette Plt Count MPV Immature Gran % (Auto) Neut % (Auto) Lymph % (Auto) Edwards % (Auto) Eos % (Auto) Baso % (Auto) Absolute Neuts (auto) Absolute Lymphs (auto) Nucleated RBC % Sodium Potassium Chloride Carbon Dioxide Anion Gap BUN Creatinine Estim Creat Clear Calc Est GFR (MDRD) Af Amer Est GFR (MDRD) Non-Af BUN/Creatinine Ratio Glucose Calcium Total Bilirubin AST ALT Alkaline Phosphatase Total Protein Albumin Globulin Albumin/Globulin Ratio Ur Drug Screen Comment Ethyl Alcohol <Dr. Luis Armando Forrest, DO - Last Filed: 08/23/21 08:16> MDM MDM Narrative Medical decision making narrative: Medical screening labs were obtained. Case was discussed with the hospitalist. Lab Data Attestation: I reviewed the patient's lab results. Labs: Laboratory Results - last 24 hr 08/23/21 08/23/21 08/23/21 07:37 07:37 07:37 WBC 8.5 RBC 4.67 Hgb 13.6 Hct 40.5 MCV 86.7 MCH 29.1 MCHC 33.6 RDW Std Deviation 41.0 RDW Coeff of Ivette 13.0 Plt Count 260 MPV 10.1 Immature Gran % (Auto) 0.200 Neut % (Auto) 54.7 Lymph % (Auto) 31.9 Edwards % (Auto) 7.6 Eos % (Auto) 5.1 H Baso % (Auto) 0.5 Absolute Neuts (auto) 4.7 Absolute Lymphs (auto) 2.71 Nucleated RBC % 0 Sodium 141 Potassium 4.0 Chloride 105 Carbon Dioxide 30.0 Anion Gap 6 BUN 12 Creatinine 0.86 Estim Creat Clear Calc 103.04 Est GFR (MDRD) Af Amer 126 Est GFR (MDRD) Non-Af 104 BUN/Creatinine Ratio 13.9 Glucose 98 Calcium 8.9 Total Bilirubin 0.30 AST 19 ALT 17 Alkaline Phosphatase 63 Total Protein 6.8 Albumin 3.5 Globulin 3.3 Albumin/Globulin Ratio 1.1 Ur Drug Screen Comment Ethyl Alcohol < 3.0 08/23/21 08:00 WBC RBC Hgb Hct MCV MCH MCHC RDW Std Deviation RDW Coeff of Ivette Plt Count MPV Immature Gran % (Auto) Neut % (Auto) Lymph % (Auto) Edwards % (Auto) Eos % (Auto) Baso % (Auto) Absolute Neuts (auto) Absolute Lymphs (auto) Nucleated RBC % Sodium Potassium Chloride Carbon Dioxide Anion Gap BUN Creatinine Estim Creat Clear Calc Est GFR (MDRD) Af Amer Est GFR (MDRD) Non-Af BUN/Creatinine Ratio Glucose Calcium Total Bilirubin AST ALT Alkaline Phosphatase Total Protein Albumin Globulin Albumin/Globulin Ratio Ur Drug Screen Comment Ethyl Alcohol Discharge Plan Dx/Rx/DC Orders Clinical Impression: Desire for detoxification Disposition Disposition: Acute Care Hospital [facility]
[2021-08-23 07:48] LABS: Absolute Lymphocyte Count 2.71 X10^3/uL (0.83-4.51); Absolute Neutrophil Count 4.7 X10^3/uL (2.0-7.7); Basophil# 0.04 X10^3/uL; Basophil% 0.5 % (0-1); Eosinophil# 0.43 X10^3/uL; Eosinophils% 5.1 % (0-5); Hematocrit 40.5 % (40-54); Hemoglobin 13.6 g/dL (13.0-16.5); Lymphocyte # 2.71 X10^3/ul (0.83-4.51); Lymphocyte % 31.9 % (19-41); Mean Corp Hgb Conc 33.6 g/dL (32-36); Mean Corpuscular Hgb 29.1 pg (27.0-32.0); Mean Corpuscular Volume 86.7 fL (80-94); Mean Platelet Vol. 10.1 fl (6.2-12.0); Monocyte# 0.65 X10^3/uL; Monocyte% 7.6 % (0-10); NRBC Flagged by Analyzer 0 % (0-5); Neutrophil # 4.65 X10^3/uL (2.7-7.7); Neutrophil % 54.7 % (47-70); Platelet Count 260 K/mm3 (150-450); Red Blood Count 4.67 M/mm3 (4.6-6.2); White Blood Count 8.5 K/mm3 (4.4-11.0)
[2021-08-23 08:07] LABS: ALB/GLOB Ratio 1.1 RATIO (0.9-2.4); AST(SGOT) 19 U/L (15-37); Alanine Aminotransfer ALT/SGPT 17 U/L (16-61); Albumin, Serum 3.5 g/dL (3.2-5.0); Alkaline Phosphatase 63 U/L (45-117); Anion Gap 6 (5-15); BUN 12 mg/dL (7-18); BUN/Creat Ratio 13.9 RATIO (10-20); Calcium,Total 8.9 mg/dL (8.5-10.1); Chloride 105 mmol/L (98-107); Creatinine, Serum 0.86 mg/dL (0.70-1.30); EST Glomerular Filtration Rate 104 mL/min (>60); Est Glom Filt Rate - Afr Amer 126 mL/min (>60); Estimated Creatinine Clearance 103.04 ml/min; Globulin 3.3 g/dL (2.2-4.2); Glucose 98 mg/dL (74-106); Protein, Total 6.8 g/dL (6.4-8.2); Sodium Level 141 mmol/L (136-145)
[2021-08-23 08:09] LABS: Alcohol, Blood (Medical)-Serum < 3.0 mg/dL
[2021-08-23 08:22] LABS: Amphetamine Urine VISTA NEGATIVE (<1000 ng/mL); Barbiturate Urine VISTA NEGATIVE (< 200 ng/mL); Benzodiazepine Urine VISTA NEGATIVE (< 200 ng/mL); Cocaine Urine VISTA POSITIVE (< 300 ng/mL); Ecstacy Urine VISTA NEGATIVE (< 500 ng/mL); Methadone Urine VISTA NEGATIVE (< 300 ng/mL); PCP Urine VISTA NEGATIVE (< 25 ng/mL); THC Urine VISTA NEGATIVE (< 50 ng/mL); Vista UDS pH Range 6
--- NOTE | 2021-08-23 08:22 | HP.PCM.HOS_ITS ---
HPI - General General Date of Admission: 08/23/21 HPI Narrative GLENN OLIVAS, is a 41 M with a PMH as outlined who presents via the ED on 08/23/2021 for acute opioid withdrawal. He uses fentanyl. He had recently been clean for about 3 months after going through detox, but relapsed about a month ago. He smokes fentanyl and his last use was the day before presentation. He also uses cocaine but denies any other drug use. Vitals in the ED were BP of 150/76, NV of 64, RR of 17 and temp of 97.9. He was saturating at 98% on room air. CBC was unremarkable, and BMP was also unremarkable. Urine tox was positive for cocaine and serum alcohol level was <3. He is being admitted to be managed for acute opioid withdrawal. [facility] Medical History (Updated 08/23/21 @ 09:07 by Kathleen Bassett) Fentanyl dependence Hepatitis C Opiate withdrawal Substance abuse Home Medications NK 04/02/21 [History Last Taken Unknown] Allergy/AdvReac Type Severity Reaction Status Date / Time No Known Allergies Allergy Verified 08/23/21 07:10 Family History Father Hypertension Mother Cancer Reports cancer, female type. Surgical History History of incision and drainage Social History household members: significant other Smoking Status: Current every day smoker tobacco type: cigarettes and smokeless tobacco alcohol intake: current alcohol intake frequency: a few times a week substance use type: other details: Patient has used several substances, prior IVDA, currently smoking Fentanyl ROS Constitutional Constitutional: Denies anorexia, chills, fatigue, fever(s), malaise or weakness Eyes Eyes: Denies change in vision ENT HEENT: Denies dysphagia, headache(s) or nasal congestion Cardiovascular Cardiovascular: Denies chest pain, dyspnea on exertion, lightheadedness, orthopnea, palpitations, paroxysmal nocturnal dyspnea or rapid heart rate Respiratory/Chest Respiratory/Chest: Denies cough, dyspnea, productive cough, shortness of breath at rest or shortness of breath with exertion Gastrointestinal Gastrointestinal: Denies abdominal pain, constipation, diarrhea, nausea or vomiting Genitourinary Genitourinary: Denies dysuria Musculoskeletal Musculoskeletal: Denies joint pain Psychiatric Psychiatric: Denies anxiety or depression Hematologic/Lymphatic Hematologic/Lymphatic: Denies anemia Vital Signs Vital Signs Vital Signs: 08/23/21 07:08 Temperature 97.9 F Temperature Source Temporal Pulse Rate 64 Respiratory Rate 18 Blood Pressure 150/76 H Blood Pressure Mean 100 Pulse Ox 98 Oxygen Delivery Method Room Air Weight Weight: 155 lb Body Mass Index (BMI) 25.0 Physical Exam Const alert and oriented x3 General Appearance: cooperative HEENT normocephalic, head/scalp atraumatic, hearing grossly normal bilaterally and moist oral mucous membranes Eyes PERRL, EOMs intact bilaterally and conjunctivae normal Neck no lymphadenopathy, supple and no JVD Resp normal respiratory effort, no retractions, no use of accessory muscles and clear to auscultation bilaterally Cardio regular rate, regular rhythm, S1 normal heart sound, S2 normal heart sound and no murmurs GI normal to inspection, nondistended, normoactive bowel sounds, soft to palpation, non-tender and non-distended Extremity normal to inspection, full ROM and no clubbing, cyanosis or edema Peripheral Pulses: Yes pulses 2+ throughout Skin no rashes or lesions noted Neuro oriented x3, CN's II-XII intact bilaterally and moves all extremities Sensorium / Orientation: awake and alert Psych affect normal Results Lab / Micro Data Result Diagrams: 08/23/21 07:37 08/23/21 07:37 Labs: Laboratory Results - last 24 hr 08/23/21 07:37: WBC 8.5, RBC 4.67, Hgb 13.6, Hct 40.5, MCV 86.7, MCH 29.1, MCHC 33.6, RDW Std Deviation 41.0, RDW Coeff of Ivette 13.0, Plt Count 260, MPV 10.1, Immature Gran % (Auto) 0.200, Neut % (Auto) 54.7, Lymph % (Auto) 31.9, Stevens % (Auto) 7.6, Eos % (Auto) 5.1 H, Baso % (Auto) 0.5, Absolute Neuts (auto) 4.7, Absolute Lymphs (auto) 2.71, Nucleated RBC % 0 08/23/21 07:37: Sodium 141, Potassium 4.0, Chloride 105, Carbon Dioxide 30.0, Anion Gap 6, BUN 12, Creatinine 0.86, Estim Creat Clear Calc 103.04, Est GFR (MDRD) Af Amer 126, Est GFR (MDRD) Non-Af 104, BUN/Creatinine Ratio 13.9, Glucose 98, Calcium 8.9, Total Bilirubin 0.30, AST 19, ALT 17, Alkaline Phosphatase 63, Total Protein 6.8, Albumin 3.5, Globulin 3.3, Albumin/Globulin Ratio 1.1 08/23/21 07:37: Ethyl Alcohol < 3.0 08/23/21 08:00: Ur Drug Screen Comment Assessment & Plan Assessment/Plan (1) Desire for detoxification: PLAN: #Acute opioid withdrawal * admit to med surg * start on opioid withdrawal protocol with buprenorphine * monitor COWS score * adjunctive meds for symptomatic relief * #History of hep C * treatment naive * Counseled that he will need to be sober for at least 6 months to qualify for treatment * will refer to GI on outpatient basis upon discharge * * #Nicotine dependence: smokes at least 1 pack daily. Counseled to quit. Nicotine patch 21 mg daily DVT prophylaxis: low risk, encourage to ambulate. Charges/Coding Visit Charges Inpatient E&M: 80146 Init Hosp L3
--- NOTE | 2021-08-23 08:25 | NURSING ---
MED SURG K[facility]AM OPIATE WITHDRAWAL
[2021-08-23 08:36] VITALS: BP 136/79; PULSE 62; RESP 18; TEMP 36.6; O2SAT 98
[2021-08-23 09:03] VITALS: BMI 24.7
[2021-08-23 09:11] VITALS: BP 134/87; PULSE 68; RESP 18; TEMP 36.4; O2SAT 99
[2021-08-23] MEDS: hydrOXYzine PAM 25 MG Capsule 50 MG PO (09:36)
[2021-08-23 14:35] VITALS: BP 147/82; PULSE 60; RESP 18; TEMP 36.8; O2SAT 99
[2021-08-23] MEDS: Buprenorphine HCl 2 MG TAB.SUBL SL ×2 (14:55→22:50)
[2021-08-23] MEDS: Gabapentin 300 MG Capsule PO (18:19)
[2021-08-23] MEDS: cloNIDine HCl 0.1 MG Tablet PO (18:19)
[2021-08-23] MEDS: Dicyclomine 10 MG Capsule 20 MG PO (18:21)
[2021-08-23] MEDS: Methocarbamol 750 MG Tablet 1500 MG PO (18:21)
[2021-08-23 18:22] VITALS: BP 138/79; PULSE 68; RESP 18; TEMP 36.6; O2SAT 99
[2021-08-23 22:20] VITALS: BP 126/71; PULSE 64; RESP 16; TEMP 36.8; O2SAT 98
[2021-08-24 06:00] VITALS: BP 121/76; PULSE 60; RESP 16; TEMP 36.7; O2SAT 98
[2021-08-24] MEDS: Buprenorphine HCl 2 MG TAB.SUBL SL ×3 (06:31→22:41)
[2021-08-24 09:39] VITALS: BP 123/69; PULSE 66; RESP 16; TEMP 36.6; O2SAT 96
[2021-08-24] MEDS: Methocarbamol 750 MG Tablet 1500 MG PO (09:43)
[2021-08-24] MEDS: cloNIDine HCl 0.1 MG Tablet PO (09:43)
--- NOTE | 2021-08-24 11:10 | PN.HOSP_ITS ---
Subjective Subjective Patient seen and examined. He has no active complaints. He had an uneventful night. REview of systems is otherwise negative. Objective Data Objective Data Vital Signs: Vital Signs Temp Pulse Resp BP Pulse Ox 97.9 F 66 16 123/69 H 96 08/24/21 09:39 08/24/21 09:39 08/24/21 09:39 08/24/21 09:39 08/24/21 09:39 Oxygen Delivery Method Room Air Weight: 153 lb 7.068 oz Body Mass Index (BMI) 24.7 Intake & Output: Intake and Output for Last 24 Hours 08/22/21 08/23/21 08/24/21 23:59 23:59 23:59 Intake Total 500 / 500 Balance 500 / 500 Lab / Micro Data Result Diagrams: 08/23/21 07:37 08/23/21 07:37 Physical Exam Const alert, oriented x3 and no apparent distress General Appearance: cooperative Exam Limitations: no limitations HEENT normocephalic, head/scalp atraumatic, hearing grossly normal bilaterally and moist oral mucous membranes Head and Scalp: normocephalic Eyes PERRL, EOMs intact bilaterally and conjunctivae normal Neck no lymphadenopathy, supple and no JVD Resp normal respiratory effort, no retractions, no use of accessory muscles and clear to auscultation bilaterally Cardio regular rate, regular rhythm, S1 normal heart sound, S2 normal heart sound and no murmurs GI normal to inspection, nondistended, normoactive bowel sounds, soft to palpation, non-tender and non-distended Extremity normal to inspection, full ROM and no clubbing, cyanosis or edema Peripheral Pulses: Yes pulses 2+ throughout Skin no rashes or lesions noted Neuro oriented x3, CN's II-XII intact bilaterally and moves all extremities Sensorium / Orientation: awake and alert Psych affect normal Assessment & Plan Assessment/Plan (1) Desire for detoxification: PLAN: #Acute opioid withdrawal * on opioid withdrawal protocol with buprenorphine * monitor COWS score * adjunctive meds for symptomatic relief * #History of hep C * treatment naive * Counseled that he will need to be sober for at least 6 months to qualify for treatment * will refer to GI on outpatient basis upon discharge * #Nicotine dependence: smokes at least 1 pack daily. Counseled to quit. Nicotine patch 21 mg daily DVT prophylaxis: low risk, encourage to ambulate. Charges/Coding Visit Charges Inpatient E&M: 32722 Subs Hosp L2
[2021-08-24 14:43] VITALS: BP 116/73; PULSE 62; RESP 16; TEMP 36.7; O2SAT 99
[2021-08-24 18:33] VITALS: BP 120/75; PULSE 69; RESP 16; TEMP 36.9; O2SAT 96
[2021-08-24] MEDS: hydrOXYzine PAM 25 MG Capsule 50 MG PO (18:38)
[2021-08-24] MEDS: traZODone 100 MG Tablet PO (22:41)
[2021-08-24 22:50] VITALS: BP 121/73; PULSE 66; RESP 16; TEMP 37.2; O2SAT 98
[2021-08-25] MEDS: Buprenorphine HCl 2 MG TAB.SUBL SL ×2 (06:35→14:17)
[2021-08-25 08:05] VITALS: BP 109/65; PULSE 59; RESP 16; TEMP 36.4; O2SAT 95
--- NOTE | 2021-08-25 09:40 | PCM.PN.HOSP ---
Subjective Subjective Follow-up on acute opioid withdrawal: Patient was seen and examined. He denied any new complaints. No acute events overnight Objective Data Objective Data Vital Signs: Vital Signs Temp Pulse Resp BP Pulse Ox 97.6 F L 59 L 16 109/65 95 08/25/21 08:05 08/25/21 08:05 08/25/21 08:05 08/25/21 08:05 08/25/21 08:05 Oxygen Delivery Method Room Air Weight: 69.6 kg Body Mass Index (BMI) 24.7 Intake & Output: Intake and Output for Last 24 Hours 08/23/21 08/24/21 08/25/21 23:59 23:59 23:59 Intake Total 500 / 500 1400 / 1400 480 / 480 Balance 500 / 500 1400 / 1400 480 / 480 Lab / Micro Data Result Diagrams: 08/23/21 07:37 08/23/21 07:37 Physical Exam Narrative Physical exam: General: Alert, Oriented x3, Cooperative HEENT: Atraumatic Oral: Moist Mucosa Neck: Supple Lungs: Clear to auscultation Cardiovascular: HS I+II, regular, no murmurs Abdomen: Bowel Sounds Present, Soft, Non Tender Extremities: No edema Skin: No rashes, No breakdown Neurological: Grossly intact Psych/Mental Status: Appropriate Assessment & Plan Assessment/Plan (1) Desire for detoxification: PLAN: 1. Acute opioid withdrawal, continue on buprenorphrine withdrawal protocol 2. Nicotine dependence, continue on patch 3. Chronic hep C, needs to follow-up in the outpatient 4. DVT prophylaxis low risk, early ambulation, and Charges/Coding Visit Charges Inpatient E&M: 39090 Subs Hosp L2
--- NOTE | 2021-08-25 12:04 | ADDICTION ---
This worker met with Pt to discuss D/C planning. He requested to go to [facility], however 'needs to go home first. This worker faxed H&P and demographics to [facility]. Pt will follow up with admissions later this week.
[2021-08-25 14:00] VITALS: BP 117/63; PULSE 73; RESP 14; TEMP 36.7; O2SAT 96
[2021-08-26] MEDS: Buprenorphine HCl 2 MG TAB.SUBL SL (02:22)
--- NOTE | 2021-08-26 07:27 | PCM.DC ---
Discharge Instructions Diet Discharge Diet: No restrictions Activity Discharge Activity: Return to Normal Activity Follow Up Care Test Results: Test results from this visit will be discussed in further detail at your follow-up appointment, if applicable. Discharge Plan Admission Admit Date/Time: 08/23/21 08:26 Primary Reason for Your Visit: Acute opioid withdrawal Attending Provider: Anuja Duncan Primary Care Provider: Jonathan Physician,No Primary Consulting Providers: Jaida Herrera Instructions Additional Instructions / Restrictions: You are strongly advised to continue to avoid use of opioids. You are also advised to stop smoking. Follow-up with your outpatient drug rehab program as scheduled. Discharge Orders/Prescriptions Prescriptions: No Action NK RF: 0 Referrals / Follow Up: Care Physician,No Primary [Primary Care Provider] - In 1 Week Disposition Disposition (needs filled in before D/C Order can be placed): Home, Self Care
--- NOTE | 2021-08-26 07:29 | DS.PCM_ITS ---
Providers Date of Admission: 08/23/21 Date of Discharge: 08/26/21 Primary Care Physician: Melonie Primary Care Phys Reason For Visit: ACUTE OPIOID WITHDRAWAL Diagnosis Discharge Diagnosis (1) Desire for detoxification: Status: Acute (2) Acute opioid withdrawal: Status: Acute Code(s): F11.23 - Opioid dependence with withdrawal Medications at Discharge Home Medications NK 04/02/21 Hospital Course Operations None Procedures None Summary of Care Provided Minutes Spent on Discharge: 25 Hospital Course: 41-year-old male the past medical history of chronic opioid use and chronic hepatitis C who comes in requesting for medical stabilization against acute opioid withdrawal. Patient admits to using fentanyl. He stated that he was clean for 3 months after going to [facility] but relapsed a month afterwards. Patient's admitting vitals were stable. Admitting blood work was unremarkable. His urine tox was positive for cocaine. He was admitted to the [facility] and managed on the Subutex withdrawal protocol. Patient generally did well. There are no acute events during this hospital stay. He was seen by the artificial marble worker and discharged to [facility]. On the day of discharge, patient was seen and examined. Denied any new complaints. Physical Exam Narrative Physical exam: General: Alert, Oriented x3, Cooperative HEENT: Atraumatic Oral: Moist Mucosa Neck: Supple Lungs: Clear to auscultation Cardiovascular: HS I+II, regular, no murmurs Abdomen: Bowel Sounds Present, Soft, Non Tender Extremities: No edema Skin: No rashes, No breakdown Neurological: Grossly intact Psych/Mental Status: Appropriate Weight / BMI Weight Weight: 69.6 kg Body Mass Index (BMI) 24.7 ABG / Lab / Microbiology Data Result Diagrams: 08/23/21 07:37 08/23/21 07:37 D/C Instructions Discharge Diet: No restrictions Meaningful Use Info Meaningful Use Diagnoses (Choose all that apply): None applicable Discharge Plan Admission Admit Date/Time: 08/23/21 08:26 Primary Reason for Your Visit: Acute opioid withdrawal Attending Provider: Anuja Duncan Primary Care Provider: Jonathan Storm,Melonie Primary Consulting Providers: Jaida Herrera Instructions Additional Instructions / Restrictions: You are strongly advised to continue to avoid use of opioids. You are also advis ed to stop smoking. Follow-up with your outpatient drug rehab program as scheduled. Discharge Orders/Prescriptions Prescriptions: No Action NK RF: 0 Referrals / Follow Up: Care Physician,No Primary [Primary Care Provider] - In 1 Week Disposition Disposition (needs filled in before D/C Order can be placed): Home, Self Care Charges/Coding Visit Charges Inpatient E&M: 98944 Disch Hosp
[2021-08-26 09:32] VITALS: BP 108/59; PULSE 67; RESP 18; TEMP 37.1; O2SAT 98
== END 2021-08-26 09:36 | disposition home or self-care (01) | DRG 773 ==
LOC: ED 07:31 → MS3 08:35
PROVIDERS: Emergency Medicine; Admitting Provider Student in an Organized Health Care Education/Training Program; Emergency Provider Emergency Medicine; Visit Provider Internal Medicine
DX: F11.23 Opioid dependence with withdrawal (principal); B18.2 Chronic viral hepatitis C; F17.210 Nicotine dependence, cigarettes, uncomplicated; F14.90 Cocaine use, unspecified, uncomplicated; L98.9 Disorder of the skin and subcutaneous tissue, unspecified
CPT/HCPCS: 80053; 80307; 82077; 85025; 99283; 99406

== ENCOUNTER 2022-10-25 05:49 | Inpatient (IN) | payer MEDICAID, SELFPAY ==
[2022-10-25] VITALS (8 sets, daily range): BP systolic 122–159; BP diastolic 77–91; PULSE 61–95; RESP 14–18; TEMP 36.5–37; O2SAT 97–100; BMI 24.7; BMI 24.3
--- NOTE | 2022-10-25 06:12 | EDS_ITS ---
HPI History of Present Illness Chief Complaint: Substance Abuse Narrative Narrative: Patient is here for detox from fentanyl. Apparently he has been sober for almost a year and started again 3 months ago. He does not inject he smokes. He has no other systemic complaints. [facility] Medical History (Updated 10/25/22 @ 06:[address] Kristian Castro MD) Fentanyl dependence Hepatitis C Opiate withdrawal Substance abuse Home Medications NK 04/02/21 [History Last Taken Unknown] Allergy/AdvReac Type Severity Reaction Status Date / Time No Known Allergies Allergy Verified 10/25/22 05:55 Family History Father Hypertension Mother Cancer Reports cancer, female type. Surgical History History of incision and drainage Social History household members: significant other Smoking Status: Current every day smoker tobacco type: cigarettes and smokeless tobacco alcohol intake: current alcohol intake frequency: a few times a week substance use type: other details: Patient has used several substances, prior IVDA, currently smoking Fentanyl ROS ROS ED ROS Narrative Past medical history: Reviewed Medications: Reviewed Social history: As in HPI. Review of systems: General: No fever Eyes: No visual changes ENT: No upper airway congestion, normal voice Neck: No neck pain Cardiovascular: No chest pain Respiratory: No shortness of breath or cough Gastrointestinal: No abdominal pain, nausea vomiting or diarrhea Genitourinary: No dysuria Musculoskeletal: Denies myalgias no difficulty with ambulation Skin: No rash Neurological: No memory loss, confusion or any focal weakness Psych: No recent behavioral changes EXAM Physical Exam Narrative Exam Narrative: Physical exam General: Well nourished, Well developed, No Acute Distress Head: Normocephalic, Atraumatic Eyes: Conjunctiva not pale ENT: Moist mucous membranes Neck: Supple, Nontender, No lymphadenopathy Cardiovascular: Regular rate, Regular rhythm Respiratory: No distress, CTA bilaterally Abdomen: Soft, Nontender, Nondistended Back: Nontender, Normal Inspection. Negative for: CVA tenderness Extremities: Nontender, No edema. No track cortes or signs of cellulitis Skin: Normal color, No rash Neurological: Alert, Normal Strength, Normal Sensation Psychological: Normal affect Const Vital Signs: 10/25/22 05:50 Temperature 97.7 F L Temperature Source Temporal Pulse Rate 95 Respiratory Rate 18 Blood Pressure 159/87 H Blood Pressure Mean 111 Pulse Ox 98 Oxygen Delivery Method Room Air MDM MDM MDM Narrative Medical decision making narrative: Patient is requesting acute detox, at this time vitals are unremarkable we will medically clear him he will need admission for opiate detox. Discharge Plan Triage Chief Complaint: Substance Abuse ED Provider: Kristian Castro Dx/Rx/DC Orders Clinical Impression: Acute opioid withdrawal, Desire for detoxification Prescriptions: No Action NK Primary Care Provider: Care Physician,No Primary Referrals: Care Physician,No Primary [Primary Care Provider] - Disposition Disposition: Acute Care Hospital [facility]
[2022-10-25 06:29] LABS: Absolute Lymphocyte Count 1.73 X10^3/uL (0.83-4.51); Basophil# 0.04 X10^3/uL; Basophil% 0.3 % (0-1); Eosinophil# 0.08 X10^3/uL; Eosinophils% 0.6 % (0-5); Hemoglobin 13.3 g/dL (13.0-16.5); Lymphocyte # 1.73 X10^3/ul (0.83-4.51); Lymphocyte % 13.6 % (19-41); Mean Corp Hgb Conc 34.1 g/dL (32-36); Mean Corpuscular Hgb 28.5 pg (27.0-32.0); Mean Corpuscular Volume 83.7 fL (80-94); Mean Platelet Vol. 9.5 fl (6.2-12.0); Monocyte# 0.82 X10^3/uL; Monocyte% 6.5 % (0-10); NRBC Flagged by Analyzer 0 % (0-5); Neutrophil # 9.98 X10^3/uL (2.7-7.7); Neutrophil % 78.7 % (47-70); Platelet Count 269 K/mm3 (150-450); RBC Distribution Width CV 12.9 % (11.6-14.6); RBC Distribution Width SD 39.1 fl (35.1-43.9); Red Blood Count 4.66 M/mm3 (4.6-6.2); White Blood Count 12.7 K/mm3 (4.4-11.0)
[2022-10-25 06:54] LABS: Anion Gap 5 (5-15); BUN 12 mg/dL (7-18); Calcium,Total 8.6 mg/dL (8.5-10.1); Chloride 104 mmol/L (98-107); EST Glomerular Filtration Rate 113 mL/min (>60); Est Glom Filt Rate - Afr Amer 137 mL/min (>60); Estimated Creatinine Clearance 109.66 ml/min; Glucose 90 mg/dL (74-106); Potassium 3.5 mmol/L (3.5-5.1); Sodium Level 139 mmol/L (136-145)
[2022-10-25 07:18] LABS: Amphetamine Urine VISTA NEGATIVE (<1000 ng/mL); Barbiturate Urine VISTA NEGATIVE (< 200 ng/mL); Benzodiazepine Urine VISTA NEGATIVE (< 200 ng/mL); Cocaine Urine VISTA POSITIVE (< 300 ng/mL); Ecstacy Urine VISTA POSITIVE (< 500 ng/mL); Methadone Urine VISTA NEGATIVE (< 300 ng/mL); PCP Urine VISTA NEGATIVE (< 25 ng/mL); THC Urine VISTA POSITIVE (< 50 ng/mL); Vista UDS pH Range 5
--- NOTE | 2022-10-25 07:24 | HP.PCM.HOS_ITS ---
HPI - General General Date of Admission: 10/25/22 Date of Service: 10/25/22 Chief Complaint: Opiate detox HPI Narrative GLENN OLIVAS, is a 42 M who presented to the emergency department [facility] on 10/25/2022 requesting opiate detox. Last use was midnight. He states has been using about a half a gram daily and smokes it. No IVDU recently. States he has a history of hepatitis C but has cleared the infection independently of any treatment. He is not experiencing any symptoms at this time. Indicates that at discharge she would like to pursue outpatient treatment. Vital signs on presentation show a temperature of 97.7, blood pressure 159/87, heart rate 95, respiratory rate 18, oxygen saturation 98% on room air. CBC shows a mild leukocytosis but is otherwise unremarkable. Chemistry panel is normal. Toxicology screen shows MDMA, cocaine, and THC in his system. Alcohol level is less than 3. [facility] Medical History (Updated 10/25/22 @ 07:[address] Trinh Dimas DO) Fentanyl dependence Hepatitis C Opiate withdrawal Substance abuse Tobacco abuse Home Medications NK 04/02/21 [History Last Taken Unknown] Allergy/AdvReac Type Severity Reaction Status Date / Time No Known Allergies Allergy Verified 10/25/22 05:55 Family History Father Hypertension Mother Cancer Reports cancer, female type. Surgical History History of incision and drainage Social History (Updated 10/25/22 @ 07:[address] Trinh Dimas DO) household members: significant other Smoking Status: Current every day smoker tobacco type: cigarettes, e-cigarettes and smokeless tobacco alcohol intake: current alcohol intake frequency: a few times a week substance use type: marijuana, opiates and other details: Patient has used several substances, prior IVDA, currently smoking Fentanyl ROS Constitutional Constitutional: Denies anorexia, change in weight, chills, fatigue, fever(s), malaise, night sweats, weakness or other Eyes Eyes: Denies blurry vision, change in eye color, change in vision, discharge from eye(s), double vision, erythema, eye pain, loss of vision or other ENT HEENT: Denies abnormal hearing, dysphagia, ear pain, epistaxis, headache(s), hearing loss, nasal congestion, nasal discharge, post nasal drip, sinus pressure, sore throat or other Cardiovascular Cardiovascular: Denies chest pain, claudication, dyspnea on exertion, edema, lightheadedness, orthopnea, palpitations, paroxysmal nocturnal dyspnea, rapid heart rate, syncope or other Respiratory/Chest Respiratory/Chest: Denies cough, dyspnea, excessive phlegm production, hemoptysis, productive cough, shortness of breath at rest, shortness of breath with exertion, wheezing or other Gastrointestinal Gastrointestinal: Denies abdominal pain, coffee ground emesis, constipation, diarrhea, dyspepsia, hematemesis, hematochezia, loose stools, melena, nausea, vomiting or other Genitourinary Genitourinary: Denies burning urination, difficulty urinating, dysuria, hematuria, nocturia, urinary frequency, urinary hesitancy, urinary incontinence, urinary urgency or other Musculoskeletal Musculoskeletal: Denies arthralgias, back pain, joint pain, joint stiffness, joint swelling, myalgias, neck pain or other Neurologic Neurologic: Denies abnormal gait, abnormal speech, confusion, disequilibrium, dizziness, focal weakness, headache(s), numbness, paresthesias, seizure-like activity, seizures, syncope, tingling, tremor(s) or other Psychiatric Psychiatric: Denies anxiety, depression, homicidal ideation, suicidal ideation or other Endocrine Endocrinology: Denies change in body appearance, cold intolerance, excessive sweating, heat intolerance, polydipsia, polyuria or other Hematologic/Lymphatic Hematologic/Lymphatic: Denies anemia, easy bleeding, easy bruising, lymphadenopathy or other Allergic/Immunologic Allergic/Immunologic: Denies rhinitis, hives, eczemia, asthma or other Vital Signs Vital Signs Vital Signs: 10/25/22 05:50 Temperature 97.7 F L Temperature Source Temporal Pulse Rate 95 Respiratory Rate 18 Blood Pressure 159/87 H Blood Pressure Mean 111 Pulse Ox 98 Oxygen Delivery Method Room Air Weight Weight: 69.4 kg Body Mass Index (BMI) 24.7 Physical Exam Const alert, oriented x3, no apparent distress, average body habitus and well nourished Constitutional Narrative: Middle-aged, white male, sitting up in bed, appears older than stated age, appears comfortable and nontoxic General Appearance: cooperative HEENT normocephalic, head/scalp atraumatic and hearing grossly normal bilaterally HEENT Narrative: Dentures in place, Mallampati 2, no thrush Resp normal respiratory effort, no retractions, no use of accessory muscles and clear to auscultation bilaterally Auscultation: Negative for rales, rhonchi or wheezes Cardio regular rate, regular rhythm, S1 normal heart sound, S2 normal heart sound, no murmurs, no rub, no gallops and no clicks GI normal to inspection, nondistended, normoactive bowel sounds, soft to palpation and non-tender Extremity no clubbing, cyanosis or edema Extremity Narrative: Pedal pulses are 2+ Neuro oriented x3, CN's II-XII intact bilaterally, moves all extremities and no focal motor deficits Speech: speech normal Psych Psych Narrative: Affect is flat, eye contact is poor, mood seems slightly depressed Results Lab / Micro Data 10/25/22 06:10 10/25/22 06:10 Labs: Laboratory Results - last 24 hr 10/25/22 06:10: WBC 12.7 H, RBC 4.66, Hgb 13.3, Hct 39.0 L, MCV 83.7, MCH 28.5, MCHC 34.1, RDW Std Deviation 39.1, RDW Coeff of Ivette 12.9, Plt Count 269, MPV 9.5, Immature Gran % (Auto) 0.300, Neut % (Auto) 78.7 H, Lymph % (Auto) 13.6 L, Stanton % (Auto) 6.5, Eos % (Auto) 0.6, Baso % (Auto) 0.3, Absolute Neuts (auto) 10.0 H, Absolute Lymphs (auto) 1.73, Nucleated RBC % 0, Sodium 139, Potassium 3.5, Chloride 104, Carbon Dioxide 30.0, Anion Gap 5, BUN 12, Creatinine 0.80, Estim Creat Clear Calc 109.66, Est GFR (MDRD) Af Amer 137, Est GFR (MDRD) Non-Af 113, BUN/Creatinine Ratio 15.0, Glucose 90, Calcium 8.6, Urine Opiates Screen NEGATIVE, Urine Methadone Screen NEGATIVE, Ur Barbiturates Screen NEGATIVE, Ur Phencyclidine Scrn NEGATIVE, Ur Amphetamines Screen NEGATIVE, MDMA (Ecstasy) Screen POSITIVE H, U Benzodiazepines Scrn NEGATIVE, Urine Cocaine Screen POS ITIVE H, U Cannabinoids Screen POSITIVE H, Ur Drug Screen Comment Assessment & Plan Assessment/Plan (1) Acute opioid withdrawal: (2) Desire for detoxification: PLAN: Plan Opiate abuse/acute opiate withdrawal -Had had a period sobriety for approximately a year but started reusing about 3 months ago -States he smokes this -Last use was at 12 AM on 10/25/2022 -Uses approximately half a gram daily -Subutex taper per [facility] protocol -Supportive medication for symptom management -180 consultation -Indicated on admission that he is going to pursue outpatient treatment most likely History of hepatitis C-chronic -Patient states he is cleared the infection and has a negative viral load Polysubstance abuse -Toxicology screen was positive for MDMA/cocaine/marijuana -Recommend cessation Tobacco abuse -Recommend cessation -Nicotine patch available DVT prophylaxis -Low risk CODE STATUS -Full code Charges/Coding Visit Charges Inpatient E&M: 13156 Init Hosp L1
[2022-10-25 07:32] LABS: Alcohol, Blood (Medical)-Serum < 3.0 mg/dL
[2022-10-25] MEDS: Ensure Plus High Protein 120 ML LIQUID PO (11:45)
[2022-10-25] MEDS: Dicyclomine 10 MG Capsule 20 MG PO (17:01)
[2022-10-25] MEDS: Buprenorphine HCl 2 MG TAB.SUBL SL (17:01)
[2022-10-25] MEDS: Methocarbamol 750 MG Tablet 1500 MG PO (17:01)
[2022-10-25] MEDS: cloNIDine HCl 0.1 MG Tablet PO (18:25)
[2022-10-25] MEDS: Ondansetron 8 MG Tablet PO (23:27)
[2022-10-25] MEDS: hydrOXYzine PAM 25 MG Capsule 50 MG PO (23:27)
[2022-10-25] MEDS: Acetaminophen 325 MG Tablet 650 MG PO (23:27)
[2022-10-26] MEDS: Buprenorphine HCl 2 MG TAB.SUBL SL ×3 (00:16→16:27)
[2022-10-26] MEDS: traZODone 100 MG Tablet PO (00:16)
[2022-10-26 05:04] VITALS: BP 134/66; PULSE 75; RESP 16; TEMP 36.9; O2SAT 98
[2022-10-26] MEDS: Gabapentin 300 MG Capsule PO (05:14)
--- NOTE | 2022-10-26 07:45 | PN.HOSP_ITS ---
Reason for Visit Reason for Visit: Diagnoses Opioid dependence with withdrawal (10/25/22) Subjective Subjective Feels terrible. Feels like he is going through precipitated withdrawal with buprenorphine. Objective Data Objective Data Vital Signs: Vital Signs Temp Pulse Resp BP Pulse Ox O2 Del Method 36.9 C 75 16 134/66 H 98 Room Air 10/26/22 05:04 10/26/22 05:04 10/26/22 05:04 10/26/22 05:04 10/26/22 05:04 10/26/22 05:04 Oxygen Delivery Method Room Air Weight: 68.5 kg Body Mass Index (BMI) 24.3 Intake & Output: Intake and Output for Last 24 Hours 10/24/22 10/25/22 10/26/22 23:59 23:59 23:59 Intake Total 900 / 1500 600 / 600 Balance 900 / 1500 600 / 600 Lab / Micro Data 10/25/22 06:10 10/25/22 06:10 Physical Exam Const alert Constitutional Narrative: uncomfortable HEENT head/scalp atraumatic and moist oral mucous membranes Psych affect normal Assessment & Plan Assessment/Plan (1) Acute opioid withdrawal: PLAN: Opiate abuse/acute opiate withdrawal Had had a period sobriety for approximately a year but started reusing about 3 months ago States he smokes this Last use was at 12 AM on 10/25/2022 Uses approximately half a gram daily Subutex taper per [facility] protocol Supportive medication for symptom management 180 consultation-Indicated on admission that he is going to pursue outpatient treatment most likely Told the patient that I do not feel that he is going through precipitated withdrawal as he is receiving buprenorphine and not Suboxone. Explained that despite the buprenorphine that that the first 24 to 48 hours, patient can be going through withdrawal symptoms still. PLAN: Plan Chronic conditions: * History of hepatitis X-adploij-Gkpaijo states he is cleared the infection and has a negative viral load * Polysubstance abuse-Toxicology screen was positive for MDMA/cocaine/marijuana- Recommend cessation * Tobacco abuse-Recommend cessation-Nicotine patch available DVT prophylaxis -Low risk CODE STATUS -Full code Charges/Coding Visit Charges Inpatient E&M: 04098 Subs Hosp L1
[2022-10-26 08:17] VITALS: BP 132/83; PULSE 65; RESP 16; TEMP 36.7; O2SAT 98
[2022-10-26 13:21] VITALS: BP 133/67; PULSE 69; RESP 16; TEMP 37; O2SAT 99
--- NOTE | 2022-10-26 13:45 | ADDICTION ---
This radio news writer met with PT to conduct ASAM, MSE, AUDIT, DUDIT assessments and to plan for d/c. PT A+Ox4 and participated actively. All assessments completed and placed in PT's chart. PT plans to f/u with [facility] for follow-up MAT and Outpatient treatment services. PT did not indicate a need for transportation post d/c from [facility].
[2022-10-26 15:15] VITALS: BP 132/85; PULSE 65; RESP 16; TEMP 37; O2SAT 99
[2022-10-26 21:55] VITALS: BP 126/71; PULSE 60; RESP 16; TEMP 37.4; O2SAT 100
[2022-10-27] MEDS: Acetaminophen 325 MG Tablet 650 MG PO (00:09)
[2022-10-27] MEDS: Buprenorphine HCl 2 MG TAB.SUBL SL ×3 (00:10→17:11)
[2022-10-27] MEDS: traZODone 100 MG Tablet PO (00:10)
[2022-10-27 02:26] VITALS: BP 118/75; PULSE 56; RESP 16; TEMP 37.1; O2SAT 100
[2022-10-27 02:45] VITALS: PULSE 56
--- NOTE | 2022-10-27 07:11 | PCM.PN.HOSP ---
Reason for Visit Reason for Visit: Diagnoses Opioid dependence with withdrawal (10/25/22) Subjective Subjective Feels better, but still feels bad overall. Objective Data Objective Data Vital Signs: Vital Signs Temp Pulse Resp BP Pulse Ox O2 Del Method 37.1 C 56 L 16 118/75 100 Room Air 10/27/22 02:26 10/27/22 02:45 10/27/22 02:26 10/27/22 02:26 10/27/22 02:26 10/27/22 02:45 Oxygen Delivery Method Room Air Weight: 68.5 kg Body Mass Index (BMI) 24.3 Intake & Output: Intake and Output for Last 24 Hours 10/25/22 10/26/22 10/27/22 23:59 23:59 23:59 Intake Total 900 / 1500 2500 / 2500 250 / 250 Balance 900 / 1500 2500 / 2500 250 / 250 Lab / Micro Data 10/25/22 06:10 10/25/22 06:10 Physical Exam Const alert and no apparent distress Constitutional Narrative: nontoxic. HEENT head/scalp atraumatic and moist oral mucous membranes Psych affect normal Assessment & Plan Assessment/Plan (1) Acute opioid withdrawal: PLAN: Opiate abuse/acute opiate withdrawal Had had a period sobriety for approximately a year but started reusing about 3 months ago States he smokes this Last use was at 12 AM on 10/25/2022 Uses approximately half a gram daily Subutex taper per [facility] protocol Supportive medication for symptom management 180 consultation-plan to follow w [facility] upon discharge. Told the patient that I do not feel that he is going through precipitated withdrawal as he is receiving buprenorphine and not Suboxone. Explained that despite the buprenorphine that that the first 24 to 48 hours, patient can be going through withdrawal symptoms still. PLAN: Plan Chronic conditions: History of hepatitis K-zirhtai-Bacsqfg states he is cleared the infection and has a negative viral load Polysubstance abuse-Toxicology screen was positive for MDMA/cocaine/marijuana-Recommend cessation Tobacco abuse-Recommend cessation-Nicotine patch available DVT prophylaxis -Low risk CODE STATUS -Full code Disposition: to [facility] on 10/28 Charges/Coding Visit Charges Inpatient E&M: 68085 Subs Hosp L1
[2022-10-27] MEDS: Gabapentin 300 MG Capsule PO ×2 (09:04→17:11)
[2022-10-27] MEDS: Methocarbamol 750 MG Tablet 1500 MG PO ×2 (09:04→15:17)
[2022-10-27] MEDS: hydrOXYzine PAM 25 MG Capsule 50 MG PO ×2 (09:04→15:17)
[2022-10-27 09:05] VITALS: BP 134/66; PULSE 53; RESP 18; TEMP 36.9; O2SAT 100
[2022-10-27 15:06] VITALS: BP 135/81; PULSE 57; RESP 18; TEMP 37.1; O2SAT 100
[2022-10-27] MEDS: cloNIDine HCl 0.1 MG Tablet PO (15:17)
[2022-10-27] MEDS: Dicyclomine 10 MG Capsule 20 MG PO (15:17)
--- NOTE | 2022-10-27 19:06 | NURSING ---
Pt was updated that his brother will need his toro for his car. 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 He has decided to sign out AMA. Dr. Wilburn notified.
--- NOTE | 2022-10-27 22:21 | PN.HOSP_ITS ---
Hospitalist Note Patient left AMA 10/27/221899.
--- NOTE | 2022-10-27 22:21 | PCM.HOSP.N ---
Hospitalist Note Patient left AMA 10/27/221899.
--- NOTE | 2022-10-28 07:05 | DS.PCM_ITS ---
Providers Date of Admission: 10/25/22 Primary Care Physician: No Primary Care Phys Reason For Visit: OPIATE DETOX Diagnosis Discharge Diagnosis (1) Acute opioid withdrawal: Status: Acute Code(s): F11.23 - Opioid dependence with withdrawal Plan: Opiate abuse/acute opiate withdrawal Had had a period sobriety for approximately a year but started reusing about 3 months ago States he smokes this Last use was at 12 AM on 10/25/2022 Uses approximately half a gram daily Subutex taper per [facility] protocol Supportive medication for symptom management 180 consultation-plan to follow w [facility] upon discharge. Told the patient that I do not feel that he is going through precipitated wi thdrawal as he is receiving buprenorphine and not Suboxone. Explained that despite the buprenorphine that that the first 24 to 48 hours, patient can be going through withdrawal symptoms still. Plan Chronic conditions: * History of hepatitis P-[id number]-Ytkdrrx states he is cleared the infection and has a negative viral load * Polysubstance abuse-Toxicology screen was positive for MDMA/cocaine/marijuana- Recommend cessation * Tobacco abuse-Recommend cessation-Nicotine patch available DVT prophylaxis -Low risk CODE STATUS -Full code Disposition: to [facility] on 10/28 Medications at Discharge Home Medications NK 04/02/21 Hospital Course Operations None Procedures None Summary of Care Provided Hospital Course: After patient was seen in the morning, his brother, who he came with to the hospital, had been discharged. His brother was informed did not have a explosives truck driver's license and needed a ride back home. Patient left AGAINST MEDICAL ADVICE. Weight / BMI Weight Weight: 68.5 kg Body Mass Index (BMI) 24.3 ABG / Lab / Microbiology Data 10/25/22 06:10 10/25/22 06:10 Meaningful Use Info Meaningful Use Diagnoses (Choose all that apply): None applicable Discharge Plan Admission Admit Date/Time: 10/25/22 07:22 Primary Reason for Your Visit: detox Attending Provider: Abilio Wilburn Primary Care Provider: Care Physician,No Primary Consulting Providers: Trinh Dimas Discharge Orders/Prescriptions Prescriptions: No Action NK Referrals / Follow Up: Care Physician,No Primary [Primary Care Provider] - Disposition Disposition (needs filled in before D/C Order can be placed): Against Medical Advice Charges/Coding Visit Charges Inpatient E&M: 48510 Disch Hosp
== END 2022-10-27 19:00 | disposition left against medical advice (07) | DRG 770 ==
LOC: ED 06:47 → MS3 07:34
PROVIDERS: Admitting Provider Internal Medicine; Emergency Provider Emergency Medicine
DX: F11.23 Opioid dependence with withdrawal (principal); F12.10 Cannabis abuse, uncomplicated; F19.10 Other psychoactive substance abuse, uncomplicated; F14.10 Cocaine abuse, uncomplicated; F16.10 Hallucinogen abuse, uncomplicated; F17.210 Nicotine dependence, cigarettes, uncomplicated; Z53.29 Procedure and treatment not carried out because of patient's decision for other reasons; Z86.19 Personal history of other infectious and parasitic diseases
CPT/HCPCS: 80048; 80307; 82077; 85025; 97802; 99283